=== PATIENT | male | born 1970 ===

== ENCOUNTER → 2020-07-23 15:10 | Outpatient (BNVA) | payer MEDICARE, MEDICAID, SELFPAY | PROVIDERS: PCP Physician Assistant; Visit Provider Family Medicine Adult Medicine | DX: M96.1 Postlaminectomy syndrome, not elsewhere classified (principal); Z79.891 Long term (current) use of opiate analgesic | CPT/HCPCS: 99214 ==

== ENCOUNTER → 2020-08-27 13:26 | Outpatient (BNVA) | payer MEDICARE, MEDICAID, SELFPAY | PROVIDERS: PCP Physician Assistant; Visit Provider Family Medicine Adult Medicine | DX: M96.1 Postlaminectomy syndrome, not elsewhere classified (principal); M47.816 Spondylosis without myelopathy or radiculopathy, lumbar region; Z79.891 Long term (current) use of opiate analgesic | CPT/HCPCS: 99212 ==

== ENCOUNTER → 2020-09-24 08:55 | Outpatient (BNVA) | payer MEDICARE, MEDICAID, SELFPAY | PROVIDERS: PCP Physician Assistant; Referring Provider Physician Assistant; Visit Provider Family Medicine Adult Medicine | DX: M47.816 Spondylosis without myelopathy or radiculopathy, lumbar region (principal); M96.1 Postlaminectomy syndrome, not elsewhere classified | CPT/HCPCS: 99212 ==

== ENCOUNTER → 2020-09-29 08:12 | Outpatient (BNVA) | payer MEDICARE, MEDICAID, SELFPAY | PROVIDERS: PCP Physician Assistant; Referring Provider Physician Assistant; Visit Provider Anesthesiology | DX: M47.816 Spondylosis without myelopathy or radiculopathy, lumbar region (principal); M96.1 Postlaminectomy syndrome, not elsewhere classified; M46.1 Sacroiliitis, not elsewhere classified; M51.36 Other intervertebral disc degeneration, lumbar region | CPT/HCPCS: Q3014 ==

== ENCOUNTER → 2020-10-20 13:16 | Outpatient (BNVA) | payer MEDICARE, MEDICAID, SELFPAY | PROVIDERS: PCP Physician Assistant; Visit Provider Family Medicine Adult Medicine | DX: M47.816 Spondylosis without myelopathy or radiculopathy, lumbar region (principal); M96.1 Postlaminectomy syndrome, not elsewhere classified; Z79.891 Long term (current) use of opiate analgesic | CPT/HCPCS: 99212 ==

== ENCOUNTER → 2020-12-02 15:44 | Outpatient (BNVA) | payer MEDICARE, MEDICAID, SELFPAY | PROVIDERS: PCP Physician Assistant; Visit Provider Nurse Practitioner Family | DX: M47.816 Spondylosis without myelopathy or radiculopathy, lumbar region (principal); M96.1 Postlaminectomy syndrome, not elsewhere classified; M51.36 Other intervertebral disc degeneration, lumbar region | CPT/HCPCS: 99212 ==

== ENCOUNTER → 2020-12-30 08:02 | Outpatient (BNVA) | payer MEDICARE, MEDICAID, SELFPAY | PROVIDERS: PCP Physician Assistant; Visit Provider Nurse Practitioner Family | DX: M51.36 Other intervertebral disc degeneration, lumbar region (principal); M47.816 Spondylosis without myelopathy or radiculopathy, lumbar region; M96.1 Postlaminectomy syndrome, not elsewhere classified; Z79.899 Other long term (current) drug therapy | CPT/HCPCS: 99212 ==

== ENCOUNTER → 2021-01-29 09:49 | Outpatient (BNVA) | payer MEDICARE, MEDICAID, SELFPAY | PROVIDERS: PCP Physician Assistant; Visit Provider Nurse Practitioner Family | DX: M51.36 Other intervertebral disc degeneration, lumbar region (principal); M47.816 Spondylosis without myelopathy or radiculopathy, lumbar region; M96.1 Postlaminectomy syndrome, not elsewhere classified | CPT/HCPCS: 99212 ==

== ENCOUNTER → 2021-03-01 15:42 | Outpatient (BNVA) | payer MEDICARE, MEDICAID, SELFPAY | PROVIDERS: PCP Physician Assistant; Visit Provider Nurse Practitioner Family | DX: M47.816 Spondylosis without myelopathy or radiculopathy, lumbar region (principal); M96.1 Postlaminectomy syndrome, not elsewhere classified; F17.200 Nicotine dependence, unspecified, uncomplicated; Z71.6 Tobacco abuse counseling; Z79.899 Other long term (current) drug therapy | CPT/HCPCS: 99212 ==

== ENCOUNTER → 2021-04-05 08:54 | Outpatient (BNVA) | payer MEDICARE, MEDICAID, SELFPAY | PROVIDERS: PCP Physician Assistant; Visit Provider Nurse Practitioner Family | DX: M47.816 Spondylosis without myelopathy or radiculopathy, lumbar region (principal); M96.1 Postlaminectomy syndrome, not elsewhere classified; M51.36 Other intervertebral disc degeneration, lumbar region | CPT/HCPCS: 99212 ==

== ENCOUNTER → 2021-05-11 08:25 | Outpatient (BNVA) | payer MEDICARE, MEDICAID, SELFPAY | PROVIDERS: PCP Physician Assistant; Visit Provider Family Medicine Adult Medicine | DX: M47.816 Spondylosis without myelopathy or radiculopathy, lumbar region (principal); M96.1 Postlaminectomy syndrome, not elsewhere classified; Z79.899 Other long term (current) drug therapy | CPT/HCPCS: 99212 ==

== ENCOUNTER → 2021-06-22 09:41 | Outpatient (BNVA) | payer MEDICARE, MEDICAID, SELFPAY | PROVIDERS: PCP Physician Assistant; Visit Provider Family Medicine Adult Medicine | DX: Z51.81 Encounter for therapeutic drug level monitoring (principal); M47.816 Spondylosis without myelopathy or radiculopathy, lumbar region; M96.1 Postlaminectomy syndrome, not elsewhere classified | CPT/HCPCS: 99212 ==

== ENCOUNTER → 2021-07-21 09:30 | Outpatient (BNVA) | payer MEDICARE, MEDICAID, SELFPAY | PROVIDERS: PCP Physician Assistant; Visit Provider Anesthesiology | DX: M47.816 Spondylosis without myelopathy or radiculopathy, lumbar region (principal); M96.1 Postlaminectomy syndrome, not elsewhere classified; M46.1 Sacroiliitis, not elsewhere classified; M51.36 Other intervertebral disc degeneration, lumbar region | CPT/HCPCS: 99212 ==

== ENCOUNTER → 2021-07-22 08:27 | Outpatient (BNVA) | payer MEDICARE, MEDICAID, SELFPAY | PROVIDERS: PCP Physician Assistant; Visit Provider Family Medicine Adult Medicine | DX: Z51.81 Encounter for therapeutic drug level monitoring (principal); M47.816 Spondylosis without myelopathy or radiculopathy, lumbar region; M96.1 Postlaminectomy syndrome, not elsewhere classified | CPT/HCPCS: 99212 ==

== ENCOUNTER → 2021-08-19 08:22 | Outpatient (BNVA) | payer MEDICARE, MEDICAID, SELFPAY | PROVIDERS: Visit Provider Family Medicine Adult Medicine | DX: M47.816 Spondylosis without myelopathy or radiculopathy, lumbar region (principal); M96.1 Postlaminectomy syndrome, not elsewhere classified | CPT/HCPCS: 99212 ==

== ENCOUNTER → 2021-09-23 14:30 | Outpatient (BNVA) | payer MEDICARE, MEDICAID, SELFPAY | PROVIDERS: Visit Provider Family Medicine Adult Medicine | DX: Z51.81 Encounter for therapeutic drug level monitoring (principal); M47.816 Spondylosis without myelopathy or radiculopathy, lumbar region; M96.1 Postlaminectomy syndrome, not elsewhere classified; M25.551 Pain in right hip; G89.29 Other chronic pain | CPT/HCPCS: 99212 ==

== ENCOUNTER 2021-10-05 06:03 | Outpatient (REF) | payer MEDICARE, MEDICAID, SELFPAY ==
--- NOTE | ~2021-10-05 | FL_ITS ---
EXAMINATION: XR FLUOROSCOPY WITH IMAGES CLINICAL INFORMATION: M46.1 - Sacroiliitis, not elsewhere classified COMPARISON: MR lumbar spine 03/13/2019 TECHNIQUE: Fluoroscopy performed by Dr. Kris Fuller. Fluoroscopy time: 0.1 minutes DAP: 0.242 Gycm2 Images: 1 FINDINGS: Spinal needle overlies lower right SI joint. There is contrast in the periarticular soft tissues with probable early intra-articular contrast. No vasculature communication appreciated. FL/FL guidance in treatment room IMPRESSION: Fluoroscopy for pain management procedure.
== END 2021-10-05 06:04 | disposition home or self-care (01) ==
LOC: HO.RADIR 06:03
PROVIDERS: Visit Provider Anesthesiology
DX: M46.1 Sacroiliitis, not elsewhere classified (principal); M47.816 Spondylosis without myelopathy or radiculopathy, lumbar region; M96.1 Postlaminectomy syndrome, not elsewhere classified; M51.36 Other intervertebral disc degeneration, lumbar region
CPT/HCPCS: 27096; Q9967

== ENCOUNTER 2021-10-13 09:45 | Outpatient (REF) | payer MEDICARE, MEDICAID, SELFPAY ==
--- NOTE | ~2021-10-13 | XR_ITS ---
EXAMINATION: XR HIP, RIGHT CLINICAL INFORMATION: Chronic pain COMPARISON: None TECHNIQUE: Two views of the right hip. FINDINGS: Bones and soft tissues are notable for small cystic foci within the level of the right trochanter is most consistent with herniation pits somewhat atypical location. No acute findings. No fracture. Alignment is anatomic. Hip joint space is maintained. XR/XR hip RT w PEL1V IMPRESSION: Cystic structures incidental favor synovial herniation pits as above.
== END 2021-10-13 09:46 | disposition home or self-care (01) ==
LOC: HO.XRAY 09:45
PROVIDERS: Absent Provider Family Medicine Adult Medicine; PCP Physician Assistant; Visit Provider Anesthesiology
DX: G89.29 Other chronic pain (principal); M25.551 Pain in right hip; M47.816 Spondylosis without myelopathy or radiculopathy, lumbar region; M96.1 Postlaminectomy syndrome, not elsewhere classified; M46.1 Sacroiliitis, not elsewhere classified; M51.36 Other intervertebral disc degeneration, lumbar region
CPT/HCPCS: 73502; 99212

== ENCOUNTER → 2021-10-21 09:07 | Outpatient (BNVA) | payer MEDICARE, MEDICAID, SELFPAY | PROVIDERS: PCP Physician Assistant; Visit Provider Family Medicine Adult Medicine ==

== ENCOUNTER 2021-11-09 06:44 | Outpatient (REF) | payer MEDICARE, MEDICAID, SELFPAY | END 2021-11-09 06:45 | disposition home or self-care (01) | LOC: HO.RADIR 06:44 | PROVIDERS: Visit Provider Anesthesiology | DX: Z13.89 Encounter for screening for other disorder (principal) ==

== ENCOUNTER → 2021-11-22 08:34 | Outpatient (BNVA) | payer MEDICARE, MEDICAID, SELFPAY | PROVIDERS: PCP Physician Assistant; Visit Provider Nurse Practitioner Family | DX: Z51.81 Encounter for therapeutic drug level monitoring (principal); F11.20 Opioid dependence, uncomplicated; M47.816 Spondylosis without myelopathy or radiculopathy, lumbar region; M96.1 Postlaminectomy syndrome, not elsewhere classified; M46.1 Sacroiliitis, not elsewhere classified; M51.36 Other intervertebral disc degeneration, lumbar region | CPT/HCPCS: 99212 ==

== ENCOUNTER → 2021-12-20 08:15 | Outpatient (BNVA) | payer MEDICARE, MEDICAID, SELFPAY | PROVIDERS: PCP Physician Assistant; Visit Provider Nurse Practitioner Family | DX: Z51.81 Encounter for therapeutic drug level monitoring (principal); F11.20 Opioid dependence, uncomplicated; M51.36 Other intervertebral disc degeneration, lumbar region; M47.816 Spondylosis without myelopathy or radiculopathy, lumbar region; M96.1 Postlaminectomy syndrome, not elsewhere classified; M46.1 Sacroiliitis, not elsewhere classified | CPT/HCPCS: 99212 ==

== ENCOUNTER 2022-01-19 05:53 | Outpatient (REF) | payer MEDICARE, MEDICAID, SELFPAY ==
--- NOTE | ~2022-01-19 | FL_ITS ---
EXAMINATION: XR FLUOROSCOPY WITH IMAGES CLINICAL INFORMATION: Postlaminectomy syndrome COMPARISON: None. TECHNIQUE: Fluoroscopy performed by Dr. Tyler Pacheco. Fluoroscopy time: 1.2 minutes DAP: 1.62 Gycm2 Images: 5 FINDINGS: Sanford and contrast seen in place region of the lateral aspect of the L5 vertebral body as well as one appears to be an epidural injection. FL/FL guidance in treatment room IMPRESSION: Fluoroscopy provided for pain management.
== END 2022-01-19 05:54 | disposition home or self-care (01) ==
LOC: HO.RADIR 05:53
PROVIDERS: Visit Provider Internal Medicine
DX: M51.36 Other intervertebral disc degeneration, lumbar region (principal); M54.16 Radiculopathy, lumbar region
CPT/HCPCS: 64483; 64484; J1100; Q9967

== ENCOUNTER → 2022-02-18 14:58 | Outpatient (BNVA) | payer MEDICARE, MEDICAID, SELFPAY | PROVIDERS: PCP Physician Assistant; Visit Provider Nurse Practitioner Family | DX: M96.1 Postlaminectomy syndrome, not elsewhere classified (principal); M51.36 Other intervertebral disc degeneration, lumbar region; M47.816 Spondylosis without myelopathy or radiculopathy, lumbar region; Z79.891 Long term (current) use of opiate analgesic; Z98.890 Other specified postprocedural states | CPT/HCPCS: 99212 ==

== ENCOUNTER → 2022-03-18 08:28 | Outpatient (BNVA) | payer MEDICARE, MEDICAID, SELFPAY | PROVIDERS: PCP Physician Assistant; Visit Provider Nurse Practitioner Family | DX: Z51.81 Encounter for therapeutic drug level monitoring (principal); F11.20 Opioid dependence, uncomplicated | CPT/HCPCS: 99211 ==

== ENCOUNTER → 2022-04-19 08:31 | Outpatient (BNVA) | payer MEDICARE, MEDICAID, SELFPAY | PROVIDERS: PCP Physician Assistant; Visit Provider Nurse Practitioner Family | DX: Z79.891 Long term (current) use of opiate analgesic (principal) | CPT/HCPCS: 99211 ==

== ENCOUNTER → 2022-05-18 08:00 | Outpatient (BNVA) | payer MEDICARE, MEDICAID, SELFPAY | PROVIDERS: PCP Physician Assistant; Visit Provider Nurse Practitioner Family | DX: M96.1 Postlaminectomy syndrome, not elsewhere classified (principal); M51.36 Other intervertebral disc degeneration, lumbar region; M47.816 Spondylosis without myelopathy or radiculopathy, lumbar region; Z79.891 Long term (current) use of opiate analgesic | CPT/HCPCS: 99212 ==

== ENCOUNTER → 2023-01-30 14:50 | Outpatient (BNVA) | payer MEDICARE, MEDICAID, SELFPAY | PROVIDERS: PCP Physician Assistant; Visit Provider Anesthesiology | DX: M47.816 Spondylosis without myelopathy or radiculopathy, lumbar region (principal); M96.1 Postlaminectomy syndrome, not elsewhere classified; M46.1 Sacroiliitis, not elsewhere classified; M51.36 Other intervertebral disc degeneration, lumbar region | CPT/HCPCS: 99212 ==

== ENCOUNTER 2023-02-13 09:48 | Outpatient (REF) | payer MEDICARE, MEDICAID, SELFPAY ==
--- NOTE | ~2023-02-13 | US_ITS ---
EXAMINATION: US SOFT TISSUE NECK CLINICAL INFORMATION: Right-sided neck small mobile mass. COMPARISON: None available. TECHNIQUE: Ultrasound of the neck soft tissues is performed with high- frequency villa-scale imaging and color Doppler. FINDINGS: RIGHT NECK SOFT TISSUES: Corresponding to patient indicated palpable lump is a 1.4 x 0.7 x 0.3 cm level 5A benign appearing lymph node. US/US soft tiss head and/or neck IMPRESSION: Corresponding to patient indicated palpable lump is a 1.4 x 0.7 x 0.3 cm level 5A benign appearing lymph node.
== END 2023-02-13 09:49 | disposition home or self-care (01) ==
LOC: HO.HMGCX 09:48
PROVIDERS: PCP Physician Assistant; Visit Provider Physician Assistant
DX: R22.1 Localized swelling, mass and lump, neck (principal); M47.816 Spondylosis without myelopathy or radiculopathy, lumbar region; M96.1 Postlaminectomy syndrome, not elsewhere classified; M46.1 Sacroiliitis, not elsewhere classified; M51.36 Other intervertebral disc degeneration, lumbar region
CPT/HCPCS: 76536; 99212

== ENCOUNTER 2023-02-23 08:27 | Outpatient (REF) | payer MEDICARE, MEDICAID, SELFPAY ==
[2023-02-23 11:27] LABS: Amphetamine Screen Urine Not Detected (Not Detect); Barbiturates, Urine Not Detected (Not Detect); Benzodiazepines Screen Urine Not Detected (Not Detect); Cannabinoid Screen Urine Not Detected (Not Detect); Cocaine Screen Urine Not Detected (Not Detect); Fentanyl, urine Not Detected (Not Detect); Opiate Screen Urine POSITIVE (Not Detect); Phencyclidine Screen Urine Not Detected (Not Detect)
[2023-02-23 11:34] LABS: Hematocrit 42.9 % (42.0-52.0); Hemoglobin 14.6 g/dl (14.0-18.0); Mean Corpuscular Hemoglobin 31.8 pg (27.0-33.0); Mean Corpuscular Volume 93.5 fL (80.0-98.0); Mean Platelet Volume 9.6 fL (9.4-12.4); Platelet Count 282 X10*3/uL (160-400); Red Blood Count 4.59 X10*6/uL (4.60-5.80); Red Cell Distribution Width 12.8 % (11.0-16.0); White Blood Count 5.9 X10*3/uL (4.8-10.8)
[2023-02-23 12:29] LABS: Alanine Aminotransferase 17 U/L (0-40); Albumin Level 4.2 g/dL (3.5-5.0); Alkaline Phosphatase 105 U/L (39-117); Anion Gap 11 (12-20); Aspartate Amino Transferase 21 U/L (5-37); Blood Urea Nitrogen 8 mg/dL (9-16); Calcium 9.3 mg/dL (8.4-10.2); Carbon Dioxide 27 mmol/L (22-29); Chloride 103 mmol/L (96-108); Estimated Glomerular Filt Rate > 60; Glucose Fasting 95 mg/dL (60-99); Potassium 3.8 mmol/L (3.3-5.1); Sodium 137 mmol/L (135-145); Total Protein 6.8 g/dL (6.5-8.0)
[2023-02-23 12:55] LABS: Prostate Specific Antigen Scr 1.43 ng/mL (<0.05-4.0)
== END 2023-02-23 08:28 | disposition home or self-care (01) ==
LOC: HO.HMGCLDS 08:27
PROVIDERS: PCP Physician Assistant; Visit Provider Physician Assistant
DX: J45.909 Unspecified asthma, uncomplicated (principal); F11.20 Opioid dependence, uncomplicated; Z13.1 Encounter for screening for diabetes mellitus; Z12.5 Encounter for screening for malignant neoplasm of prostate
CPT/HCPCS: 80053; 80307; 84153; 85027

== ENCOUNTER 2023-05-15 14:47 | Outpatient (AMB) | payer MEDICARE, MEDICAID, SELFPAY ==
[2023-05-15 14:49] VITALS: BP 140/88; PULSE 104; O2SAT 98; BMI 22.8
--- NOTE | 2023-05-15 14:49 | MHC.PC.OV ---
Vital Signs 05/15/23 14:49 Height 5 ft 8 in Weight 150 lb BMI 22.8 BP 140/88 H Blood Pressure Location Lt brachial Position Sitting Pulse 104 H Pulse Source Pulse Oximeter Temp Source Skin Pulse Oximetry (%) 98 Oxygen Delivery Method Room Air Intake Visit Reasons: pain managment Turbinated Bone Grinder Required: No Allergies tramadol [From Ultram] Allergy (Severe, Verified 05/15/23 15:01) Hives naloxone [From Suboxone] Allergy (Mild, Verified 05/15/23 15:01) Hives aspirin Allergy (Unknown, Verified 05/15/23 15:01) Unknown ibuprofen [Advil] Allergy (Unknown, Verified 05/15/23 15:01) Unknown morphine Allergy (Unknown, Verified 05/15/23 15:01) Unknown Sulfa (Sulfonamide Antibiotics) Allergy (Unknown, Verified 05/15/23 15:01) Unknown carisoprodol [From Soma] Adverse Reaction (Severe, Verified 05/15/23 15:01) fever, rash buprenorphine Adverse Reaction (Intermediate, Verified 05/15/23 15:01) hives NSAIDS Allergy (Unknown, Uncoded 05/15/23 14:52) Stomach Upset Medication List - Last Reconciled 05/15/23 by Jerome Menesse PA-C albuterol sulfate 90 mcg/actuation (Ventolin HFA) 1 puff inhalation Q4H 30 days budesonide (Pulmicort) 0.25 mg (2 mL) inhalation DAILY PRN 15 days cyclobenzaprine 10 mg PO Q8H PRN 30 days oxycodone 10 mg (2 x 5 mg) PO TID 28 days pantoprazole 40 mg PO DAILY Tobacco use date assessed: 05/15/23 Dental Screening Dental Screen Date: 05/15/23 Did you have a dental visit in the last 12 months?: Yes Did you have a dental problem in the last 6 months where you did not have access to dental care?: No Was dental information given to patient?: Patient has dentist HPI pain managment HPI Details Patient is a 52-year-old male here today for routine annual physical.? Patient has a past medical history significant asthma, generalized anxiety disorder, former smoker, opiate dependence and lumbar degenerative disc disease. Concern--> reports he has been having more anxiety as of late due to personal issues at home. He would like to restart his fluoxetine he use in the past with good effect on reducing his anxiety. . Lumbar degenerative disc disease:? Did have emergent lumbar surgery in 2014, ?Continues with the use of long-term opiate pain medication.? Has had no signs of abuse and most recent urine drug screen acceptable. ? He was followed by [facility] and is considering lumbar spine injections his continued pain. He is asking for 2nd opinion to [facility] pain management to help manage his opiates as well. He does have multilevel disc disease in his lumbar spine and continues to have worsening pain with radiculopathy down lower extremities.? He has an upcoming MRI for re-evaluation of his lumbar spine continued pain. Currently continues on oxycodone 10 mg t.i.d. Today reviewed and signed drug contract. [facility] Medical History Asthma Carpal tunnel syndrome, bilateral Chronic right hip pain Disc degeneration, lumbar Failed back syndrome Failed back syndrome, lumbar GERD (gastroesophageal reflux disease) Lumbar spondylosis Medication reaction Sacroiliitis, not elsewhere classified Surgical History History of hemilaminectomy Family History Father Cirrhosis of liver Mother Stomach cancer Brother Osteoporosis Son Bipolar 1 disorder Mental health disorder Social History Housing: House Alcohol intake: never Patient Tobacco Use Status: Former Tobacco user Quit Date: 2021 Tobacco use type: Cigarette e-Cigarette/Vaping Use: Never Used Second Hand Smoke Exposure: No service: No Current occupational status: disabled Current occupation: patient is currently disabled since 2013 from several different injury Cognitive needs: Yes Hearing needs: No Vision needs: No Questionnaire Thrive Questionnaire Date Thrive assessed: 01/16/23 AUDIT C Alcohol Use Questionnaire (AUDIT-C) 1. How often do you have a drink containing alcohol?: Never Total Score: 0 DEVORA-7 AMB Questionnaire DEVORA-7 Date DEVORA - 7 assessed: 01/16/23 Source: Developed by Drs. Joe Cordero, Zuleika Kingston, Andrew Dorsey and colleagues, with an educational moer from [employer]. Review of Systems Const Denies headache(s) Eyes Denies loss of vision ENT Denies vertigo, Denies dizziness, Denies headache(s) and Denies sore throat Card Denies chest pain, Denies leg edema and Denies lightheadedness Resp Denies cough, Denies hemoptysis and Denies wheezing GI Denies abdominal pain, Denies melena, Denies constipation, Denies diarrhea and Denies vomiting Denies dysuria, Denies urinary frequency and Denies urinary urgency Musc Denies arthralgias, Denies joint swelling, Denies numbness and Denies tingling Neuro Denies Abnormal speech present, Denies behavioral changes, Denies vertigo, Denies dizziness, Denies headache(s), Denies loss of vision, Denies memory loss, Denies numbness and Denies tingling Psych Denies anxiety, Denies behavioral changes, Denies depression, Denies memory loss and Denies panic attacks Tomasz/Lymph Denies easy bleeding and Denies easy bruising Aller/Immun Denies wheezing Physical exam (Primary Care) Vital Signs: Last Vital Signs Pulse 104 H 05/15/23 14:49 BP 140/88 H 05/15/23 14:49 Pulse Ox 98 05/15/23 14:49 Oxygen Delivery Method Room Air 05/15/23 14:49 BMI result Body Mass Index 22.8 Tobacco/Smoking Status: Tobacco use Status Tobacco use date assessed 05/15/23 05/15/23 14:55 Patient Tobacco Use Status Former Tobacco user 05/15/23 14:55 Tobacco use type Cigarette 05/15/23 14:55 e-Cigarette/Vaping Use Never Used 05/15/23 14:55 Thrive Assessment: Date of Thrive Assessment Date Thrive assessed 01/16/23 05/15/23 14:55 Const General: healthy appearing, no acute distress, alert and awake Nutritional Appearance: well nourished Orientation/consciousness: oriented to person, oriented to place and oriented to time HENMT Ears: TM's normal bilaterally General nose exam: Normal nasal mucous membranes and turbinates present Eyes Conjunctivae: conjunctivae normal Sclerae: sclerae normal Pupils: Equal, round and reactive pupils present Neck Neck: Yes no lymphadenopathy and Yes no JVD Thyroid: Thyroid normal Carotids: no bruits Resp Effort & Inspection: normal respiratory effort and not tachypneic Auscultation: no crackles, no rales, no rhonchi and no wheezes Cardio Rate: regular rate Rhythm: regular rhythm Heart sounds: no murmurs and normal S1 and S2 GI Palpation (GI): Soft to palpation, nontender, no hepatomegaly and no splenomegaly Auscultation: normal bowel sounds Back/Spine/Pelvis Other: CONTINUES TO AMBULATE WITH AN ANTALGIC GAIT, USING CANE FOR AMBULATION ASSISTANCE. LIMITED RANGE OF MOTION OF LUMBAR SPINE DUE TO PAIN AND STIFFNESS. Skin General skin exam: no rashes or lesions noted and dry skin Neuro General: oriented to person, oriented to place and oriented to time Cranial nerves: Yes Equal, round and reactive pupils present Speech: No Abnormal speech present Gait exam (Neuro): Normal gait present Motor exam (neuro): no tremor noted Extrem Right upper extremity: full ROM Left upper extremity: full ROM Right lower extremity: full ROM; no edema Left lower extremity: full ROM; no edema Psych Mental Status: mental status grossly normal Speech and movement: Normal speech and movement present Affect: normal affect Attitude: cooperative Thought process: Normal thought process present Assessment and Plan Assessment & Plan (1) Failed back syndrome, lumbar: Code(s): M96.1 - Postlaminectomy syndrome, not elsewhere classified Plan: As per HPI patient continues to have lumbar spine pain for the past several years. Has seen pain management for years though has lost his follow-up and now needs PCP to manage his pain medication. Continues to use oxycodone 10 mg t.i.d. along with cyclobenzaprine . Has otherwise been responsible for getting his drug screens and pill counts have been appropriate during his time at [facility]. No overt signs of misuse. Has upcoming MRI to re-evaluate lumbar spine. Will consider seeing new neurosurgeon for evaluation of possible more invasive treatment if necessary to reduce his lumbar spine pain. Orders: Orders AMB 14 Panel Urine Drug Screen 05/15/23 M96.1 - Postlaminectomy syndrome, not elsewhere classified, Z51.81 - Encounter for therapeutic drug level monitoring Medications: New fluoxetine 10 mg PO DAILY 30 days 30 caps 1RF F41.1 - Generalized anxiety disorder Refilled oxycodone Partial Fill upon patient request. 10 mg (2 x 5 mg) PO TID 28 days 168 tabs 0RF pain M51.36 - Other intervertebral disc degeneration, lumbar region cyclobenzaprine 10 mg PO Q8H 30 days PRN 90 tabs 3RF muscle spasm M47.816 - Spondylosis without myelopathy or radiculopathy, lumbar region, M51.36 - Other intervertebral disc degeneration, lumbar region, M96.1 - Postlaminectomy syndrome, not elsewhere classified Coding Level of Care Code Est Pt Level 4 (84718) Diagnoses Failed back syndrome, lumbar M96.1
== END 2023-05-15 16:05 | disposition home or self-care (01) ==
PROVIDERS: Visit Provider Physician Assistant
DX: M96.1 Postlaminectomy syndrome, not elsewhere classified (principal)
CPT/HCPCS: 99214

== ENCOUNTER 2023-05-25 07:59 | Outpatient (REF) | payer MEDICARE, MEDICAID, SELFPAY ==
--- NOTE | ~2023-05-25 | MR_ITS ---
EXAMINATION: MR LUMBAR SPINE WITHOUT AND WITH CONTRAST CLINICAL INFORMATION: Lumbar radiculopathy COMPARISON: MRI lumbar spine 03/13/2019 TECHNIQUE: MRI of the lumbar spine was obtained using routine sequences before and after intravenous administration of 7 mL Gadavist. FINDINGS: Slight lumbar dextrocurvature. Straightening and slight reversal of the upper lumbar lordosis. Stable trace retrolisthesis from L2-L3 through L5-S1. Again noted diffuse endplate Schmorl's nodes. Decreased edema associated with an L4 upper endplate Schmorl's node. Increased enhancing type I Modic endplate changes at L4-L5 and L5-S1 with additional milder multilevel type I Modic endplate change. Stable mild chronic height loss of the T12-L2 vertebral bodies. There is no suspicious enhancing osseous lesion. Multilevel disc desiccation with stable moderate L5-S1 and otherwise mild to moderate disc height loss. Multilevel anterior osteophytic spurring is seen.There are multilevel degenerative changes with level by level detail as follows: L1-L2: Redemonstrated annular disc bulge and mild bilateral facet arthrosis. Stable minimal right eccentric spinal canal narrowing without neural foraminal stenosis. L2-L3: Annular disc bulge with mild bilateral facet arthrosis. Stable mild spinal canal narrowing without neural foraminal stenosis. L3-L4: Annular disc bulge with enhancing paracentral annular fissure, redemonstrated left foraminal/far lateral disc protrusion and mild bilateral facet arthrosis with ligamentum flavum thickening. Likely stable mild spinal canal narrowing and asymmetric left-sided subarticular zone narrowing abutting the traversing left L4 nerve root. Stable severe left neural foraminal stenosis with compression of the exiting/extraforaminal left L3 nerve root. Stable minimal right neural foraminal encroachment. L4-L5: Annular disc bulge with redemonstration of superiorly migrated left foraminal/far lateral disc extrusion and mild to moderate bilateral facet arthrosis and ligamentum flavum thickening. Increased degenerative enhancing marrow edema associated with the left facet joint and extending into the left L4 pedicle. Stable mild spinal canal stenosis and subarticular zone narrowing with abutment along the traversing left L5 nerve root. Similar moderate left and [id number] right neural foraminal stenosis with mass effect along the exiting/extraforaminal left L4 nerve root. L5-S1: Annular disc bulge and enhancing right subarticular annular fissure, right lateral disc osteophyte and moderate bilateral facet arthrosis. No spinal canal stenosis. Stable moderate to severe right neural foraminal stenosis with compression of the exiting right L5 nerve root mild left neural foraminal stenosis. The conus medullaris terminates at the level of L2-L3. Nonthickened fatty filum. The distal spinal cord and cauda equina nerve roots appear normal. No abnormal intramedullary or leptomeningeal enhancement.. No epidural fluid collection, hematoma, or mass. No significant abnormalities of the paraspinal musculature. Right renal cyst not requiring further imaging follow-up. Redemonstrated suggestion of mural thickening along the bladder dome (image 9, series 1), stable since 03/13/2019, favoring a benign etiology may be at least partially on the basis of underdistention. The abdominal aorta is of normal contour and caliber. MR/MR lumbar spine wo/w con IMPRESSION: 1. Stable lumbar spondylosis as described above. No high-grade spinal canal stenosis. Stable severe left L3-L4 neural foraminal stenosis with compression of the exiting/extraforaminal left L3 nerve root. Additional level by level as above. 2. Increased degenerative marrow edema associated with left L4-L5 facet arthropathy. 3. Decreased edema associated with an L4 upper endplate Schmorl's node. Increased enhancing type I Modic endplate changes at L4-L5 and L5-S1
== END 2023-05-25 08:00 | disposition home or self-care (01) ==
LOC: HO.MRI 07:59
PROVIDERS: PCP Physician Assistant; Visit Provider Physician Assistant
DX: M96.1 Postlaminectomy syndrome, not elsewhere classified (principal); M54.16 Radiculopathy, lumbar region
CPT/HCPCS: 72158; A9585

== ENCOUNTER 2023-10-24 09:37 | Outpatient (AMB) | payer MEDICARE, MEDICAID, SELFPAY ==
[2023-10-24 09:41] VITALS: BP 136/86; PULSE 95; RESP 17; BMI 24.8
--- NOTE | 2023-10-24 09:41 | MHC.PC.OV ---
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: No Accompanied by: Self / Same As Patient Allergies tramadol [From Ultram] Allergy (Severe, Verified 10/24/23 10:07) Hives naloxone [From Suboxone] Allergy (Mild, Verified 10/24/23 10:07) Hives aspirin Allergy (Unknown, Verified 10/24/23 10:07) Unknown ibuprofen [Advil] Allergy (Unknown, Verified 10/24/23 10:07) Unknown morphine Allergy (Unknown, Verified 10/24/23 10:07) Unknown Sulfa (Sulfonamide Antibiotics) Allergy (Unknown, Verified 10/24/23 10:07) Unknown carisoprodol [From Soma] Adverse Reaction (Severe, Verified 10/24/23 10:07) fever, rash buprenorphine Adverse Reaction (Intermediate, Verified 10/24/23 10:07) hives NSAIDS Allergy (Unknown, Uncoded 05/15/23 14:52) Stomach Upset Medication List - Last Reconciled 10/24/23 by Jerome Meneses PA-C albuterol sulfate 90 mcg/actuation (Ventolin HFA) 1 puff inhalation Q4H 30 days budesonide (Pulmicort) 0.25 mg (2 mL) inhalation DAILY PRN 15 days cyclobenzaprine 10 mg PO Q8H PRN 30 days fluoxetine 10 mg PO DAILY 30 days oxycodone 10 mg PO TID 28 days pantoprazole 40 mg PO DAILY Tobacco use date assessed: 05/15/23 Dental Screening Dental Screen Date: 10/24/23 Did you have a dental visit in the last 12 months?: Yes Did you have a dental problem in the last 6 months where you did not have access to dental care?: No Was dental information given to patient?: Patient has dentist HPI f/u pain management HPI Details atient is a 52-year-old male here today for routine annual physical.? Patient has a past medical history significant asthma, generalized anxiety disorder, former smoker, opiate dependence and lumbar degenerative disc disease. . Lumbar degenerative disc disease:? Did have emergent lumbar surgery in 2013, ?Continues with the use of long-term opiate pain medication.? Has had no signs of abuse and most recent urine drug screen acceptable. ? He was followed by the [facility] pain [facility] and is considering lumbar spine injections his continued pain. He is asking for 2nd opinion to [facility] pain management to help manage his opiates as well. He does have multilevel disc disease in his lumbar spine and continues to have worsening pain with radiculopathy down lower extremities.? He has an upcoming MRI for re-evaluation of his lumbar spine continued pain. Currently continues on oxycodone 10 mg t.i.d. he does report his pain is fairly well managed and is able to continue his activities of daily living. Does have a hobby of woodworking making [employer]. Urine drug screens have been appropriate, no overt signs does use or abuse. .. Generalized anxiety disorder: Continues with the use of fluoxetine 10 mg which has been effective on reducing his anxiety. Laboratory Tests 08/28/19 02/23/23 10:23 08:40 Urine Opiates Scre en POSITIVE H POSITIVE H PFSH Medical History Asthma Carpal tunnel syndrome, bilateral Chronic right hip pain Disc degeneration, lumbar Failed back syndrome Failed back syndrome, lumbar GERD (gastroesophageal reflux disease) Lumbar spondylosis Medication reaction Sacroiliitis, not elsewhere classified Surgical History History of hemilaminectomy Family History Father Cirrhosis of liver Mother Stomach cancer Brother Osteoporosis Son Bipolar 1 disorder Mental health disorder Social History Housing: House Alcohol intake: never Patient Tobacco Use Status: Former Tobacco user Quit Date: 2021 Tobacco use type: Cigarette e-Cigarette/Vaping Use: Never Used Second Hand Smoke Exposure: No service: No Current occupational status: disabled Current occupation: patient is currently disabled since 2013 from several different injury Cognitive needs: Yes Hearing needs: No Vision needs: No Questionnaire PHQ-9 Over the last 2 weeks, how often have you been bothered by any of the following problems? 1. Little interest or pleasure in doing things: not at all 2. Feeling down, depressed, or hopeless: not at all 3. Trouble falling or staying asleep, or sleeping too much: not at all 4. Feeling tired or having little energy: not at all 5. Poor appetite or overeating: not at all 6. Feeling bad about yourself - or that you are a failure or have let yourself or your family down: not at all 7. Trouble concentrating on things, such as reading the newspaper or watching television: not at all 8. Moving or speaking so slowly that other people could have noticed. Or the opposite - being so fidgety or restless that you have been moving around a lot more than usual: not at all 9. Thoughts that you would be better off or of hurting yourself in some way: not at all Total score: 0 Depression Screening Interpretation: Negative Depression Screening Done: Yes 10058 - PHQ-9 Billing: Yes Source: Developed by Drs. Joe Cordero, Zuleika Kingston, Andrew Dorsey and colleagues, with an educational omer from [employer]. Thrive Questionnaire Date Thrive assessed: 10/24/23 I am a: Patient What is your living situation today?: I have a steady place to live Within the past 12 months, did the food you bought not last and you didn't have the money to get more?: Never true Within the past 12 months, did you worry whether your food would run out before you got money to buy more?: Never true Do you have trouble paying for medicines?: No Do you have trouble getting transportation to medical appointments?: No Do you have trouble paying your heating and electricity bill?: No Do you have trouble taking care of your child, family member or friend?: No Do you have trouble with day-to-day activities such as bathing, preparing meals, shopping, managing finances, etc.?: No Are you currently unemployed and looking for a job?: No Are you interested in more education?: No Please select the resources that you would like help with: None Currently or been in a relationship where the following occur: no concerns reported AUDIT C Alcohol Use Questionnaire (AUDIT-C) 1. How often do you have a drink containing alcohol?: Monthly or less 2. How many drinks containing alcohol do you have on a typical day when you are drinking?: 1 or 2 3. How often do you have six or more drinks on one occasion?: Never Total Score: 1 DEVORA-7 AMB Questionnaire DEVORA-7 Date DEVORA - 7 assessed: 10/24/23 Feeling nervous, anxious, or on edge: 1 = Several days Not being able to stop or control worryin = More than half the days Worrying too much about different things: 2 = More than half the days Trouble relaxin = Nearly every day Being so restless that it is hard to sit still: 2 = More than half the days Becoming easily annoyed or irritable: 2 = More than half the days Feeling afraid as if something awful might happen: 1 = Several days Total DEVORA-7 score (0-4 normal; 5-9 mild; 10-14 moderate; 15-21 severe): 13 Source: Developed by Drs. Joe Cordero, Zuleika Kingston, Andrew Dorsey and colleagues, with an educational omer from [employer]. DEVORA-7 Assessment Billing DEVORA-7 Assessment Tool: DEVORA-7 Assessment 42509 Review of Systems Const Denies headache(s) Eyes Denies loss of vision ENT Denies vertigo, Denies dizziness, Denies headache(s) and Denies sore throat Card Denies chest pain, Denies leg edema and Denies lightheadedness Resp Denies cough, Denies hemoptysis and Denies wheezing GI Denies abdominal pain, Denies melena, Denies constipation, Denies diarrhea and Denies vomiting Denies dysuria, Denies urinary frequency and Denies urinary urgency Musc Denies arthralgias, Denies joint swelling, Denies numbness and Denies tingling Neuro Denies Abnormal speech present, Denies behavioral changes, Denies vertigo, Denies dizziness, Denies headache(s), Denies loss of vision, Denies memory loss, Denies numbness and Denies tingling Psych Denies anxiety, Denies behavioral changes, Denies depression, Denies memory loss and Denies panic attacks Tomasz/Lymph Denies easy bleeding and Denies easy bruising Aller/Immun Denies wheezing Physical exam (Primary Care) Vital Signs: Last Vital Signs Pulse 95 10/24/23 09:41 Resp 17 10/24/23 09:41 BP 136/86 10/24/23 09:41 BMI result Body Mass Index 24.8 Tobacco/Smoking Status: Tobacco use Status Tobacco use date assessed 05/15/23 10/24/23 09:43 Patient Tobacco Use Status Former Tobacco user 10/24/23 09:43 Tobacco use type Cigarette 10/24/23 09:43 e-Cigarette/Vaping Use Never Used 10/24/23 09:43 PHQ-9: PHQ-9 Score PHQ-9: Total score 0 10/24/23 10:10 Depression Screening Interpretation: Negative Thrive Assessment: Date of Thrive Assessment Date Thrive assessed 10/24/23 10/24/23 09:56 Currently or been in a relationship where the following occur: no concerns reported Const General: healthy appearing, no acute distress, alert and awake Nutritional Appearance: well nourished Orientation/consciousness: oriented to person, oriented to place and oriented to time HENMT Ears: TM's normal bilaterally General nose exam: Normal nasal mucous membranes and turbinates present Eyes Conjunctivae: conjunctivae normal Sclerae: sclerae normal Pupils: Equal, round and reactive pupils present Neck Neck: Yes no lymphadenopathy and Yes no JVD Thyroid: Thyroid normal Carotids: no bruits Resp Effort & Inspection: normal respiratory effort and not tachypneic Auscultation: no crackles, no rales, no rhonchi and no wheezes Cardio Rate: regular rate Rhythm: regular rhythm Heart sounds: no murmurs and normal S1 and S2 GI Palpation (GI): Soft to palpation, nontender, no hepatomegaly and no splenomegaly Auscultation: normal bowel sounds Back/Spine/Pelvis Other: Limited range of motion of the lumbar spine due to pain and stiffness, ambulating with a cane for assistance. Skin General skin exam: no rashes or lesions noted and dry skin Neuro General: oriented to person, oriented to place and oriented to time Cranial nerves: Yes Equal, round and reactive pupils present Speech: No Abnormal speech present Gait exam (Neuro): Normal gait present Motor exam (neuro): no tremor noted Extrem Right upper extremity: full ROM Left upper extremity: full ROM Right lower extremity: full ROM; no edema Left lower extremity: full ROM; no edema Psych Mental Status: mental status grossly normal Speech and movement: Normal speech and movement present Affect: normal affect Attitude: cooperative Thought process: Normal thought process present Assessment and Plan Assessment & Plan (1) Failed back syndrome, lumbar: Code(s): M96.1 - Postlaminectomy syndrome, not elsewhere classified Plan: As per HPI patient continues to have lumbar spine pain for the past several years. Has seen pain management for years though has lost his follow-up and now needs PCP to manage his pain medication. Continues to use oxycodone 10 mg t.i.d. along with cyclobenzaprine . Has otherwise been responsible for getting his drug screens and pill counts have been appropriate during his time at [facility]. No overt signs of misuse. Of note has seen neurosurgeon in the past and was told he was not a surgical candidate to help fix is lumbar discs. (2) MDD (major depressive disorder), recurrent episode, moderate: Code(s): F33.1 - Major depressive disorder, recurrent, moderate Plan: Patient's PHQ-9 score 0. Has been stable with the use of SSRI therapy. Not speaking with a mental health therapist at this time. (3) Opiate dependence: Code(s): F11.20 - Opioid dependence, uncomplicated Qualifiers: Substance use status: uncomplicated Qualified Code(s): F11.20 - Opioid dependence, uncomplicated Plan: Patient does understand he is dependent on opiates. Does report some fatigue which is likely related to his chronic opiate use. Will check his testosterone as well. We did have a discussion about slowly weaning his overall daily dose of oxycodone and patient agrees and understands. (4) Bronchitis: Code(s): J40 - Bronchitis, not specified as acute or chronic (5) DEVORA (generalized anxiety disorder): Code(s): F41.1 - Generalized anxiety disorder Plan: Patient's DEVORA-7 score positive for moderate to severe anxiety which has been existing condition for him. He reports fluoxetine 10 mg has been effective on reducing his anxiety symptoms. Orders: Orders Drug Screen Urine Today F11.20 - Opioid dependence, uncomplicated Comprehensive [place]. Panel Fast Today Z13.1 - Encounter for screening for diabetes mellitus Prostate Specific Antigen Scr Today Z12.5 - Encounter for screening for malignant neoplasm of prostate, Z13.1 - Encounter for screening for diabetes mellitus Testosterone, Free/Total Today F11.20 - Opioid dependence, uncomplicated, R53.83 - Other fatigue Medications: Refilled albuterol sulfate 90 mcg/actuation (Ventolin HFA) 1 puff as needed Inhalation every 4 hrs 1 puff inhalation Q4H 30 days 8.5 grams 3RF J45.909 - Unspecified asthma, uncomplicated fluoxetine 10 mg PO DAILY 30 days 30 caps 6RF F41.1 - Generalized anxiety disorder Coding Level of Care Code Est Pt Level 4 (97386) Diagnoses Failed back syndrome, lumbar M96.1 MDD (major depressive disorder), recurrent episode, moderate F33.1 Uncomplicated opioid dependence F11.20 Substance use status: uncomplicated Bronchitis J40 DEVORA (generalized anxiety disorder) F41.1 Additional Codes DEVORA-7 Assessment Billing - DEVORA-7 Assessment Tool: DEVORA-7 Assessment 11574 ([id number])
== END 2023-10-24 10:28 | disposition home or self-care (01) ==
PROVIDERS: PCP Physician Assistant; Visit Provider Physician Assistant
DX: J40 Bronchitis, not specified as acute or chronic (principal); M96.1 Postlaminectomy syndrome, not elsewhere classified; F33.1 Major depressive disorder, recurrent, moderate; F11.20 Opioid dependence, uncomplicated; F41.1 Generalized anxiety disorder
CPT/HCPCS: 99214

== ENCOUNTER 2023-10-24 10:42 | Outpatient (REF) | payer MEDICARE, MEDICAID, SELFPAY ==
[2023-10-24 13:08] LABS: Amphetamine Screen Urine Not Detected (Not Detect); Barbiturates, Urine Not Detected (Not Detect); Benzodiazepines Screen Urine Not Detected (Not Detect); Cannabinoid Screen Urine Not Detected (Not Detect); Cocaine Screen Urine Not Detected (Not Detect); Fentanyl, urine Not Detected (Not Detect); Opiate Screen Urine POSITIVE (Not Detect); Phencyclidine Screen Urine Not Detected (Not Detect)
== END 2023-10-24 10:43 | disposition home or self-care (01) ==
LOC: HO.LAB 10:42
PROVIDERS: PCP Physician Assistant; Visit Provider Physician Assistant
DX: F11.20 Opioid dependence, uncomplicated (principal)
CPT/HCPCS: 80307

== ENCOUNTER 2024-01-19 08:10 | Outpatient (REF) | payer MEDICARE, SELFPAY ==
[2024-01-19 10:58] LABS: Hematocrit 42.5 % (42.0-52.0); Hemoglobin 14.7 g/dl (14.0-18.0); Mean Corpuscular HGB Conc 34.6 g/dl (31.0-36.0); Mean Corpuscular Hemoglobin 32.7 pg (27.0-33.0); Mean Corpuscular Volume 94.7 fL (80.0-98.0); Mean Platelet Volume 9.5 fL (9.4-12.4); Platelet Count 265 X10*3/uL (160-400); Red Blood Count 4.49 X10*6/uL (4.60-5.80); Red Cell Distribution Width 12.8 % (11.0-16.0); White Blood Count 4.6 X10*3/uL (4.8-10.8)
[2024-01-19 11:08] LABS: Alanine Aminotransferase 20 U/L (0-40); Albumin Level 3.9 g/dL (3.5-5.0); Alkaline Phosphatase 104 U/L (39-117); Anion Gap 9 (12-20); Aspartate Amino Transferase 26 U/L (5-37); Bilirubin Total 0.4 mg/dL (0.0-1.0); Blood Urea Nitrogen 11 mg/dL (9-16); Carbon Dioxide 26 mmol/L (22-29); Chloride 106 mmol/L (96-108); Estimated Glomerular Filt Rate > 60; Glucose Fasting 99 mg/dL (60-99); Potassium 4.1 mmol/L (3.3-5.1); Sodium 137 mmol/L (135-145); Total Protein 7.2 g/dL (6.5-8.0)
[2024-01-19 11:17] LABS: Prostate Specific Antigen Scr 1.54 ng/mL (<0.05-4.0)
[2024-01-23 21:58] LABS: Testosterone, Free 194.6 pg/mL (35.0-155.0); Testosterone, Total 811 ng/dL (250-1100)
== END 2024-01-19 08:11 | disposition home or self-care (01) ==
LOC: HO.HMGCLDS 08:10
PROVIDERS: PCP Physician Assistant; Visit Provider Physician Assistant
DX: Z13.1 Encounter for screening for diabetes mellitus (principal); Z12.5 Encounter for screening for malignant neoplasm of prostate; F11.20 Opioid dependence, uncomplicated; R53.83 Other fatigue
CPT/HCPCS: 36415; 80053; 84153; 84402; 84403; 85027

== ENCOUNTER 2024-01-23 10:00 | Outpatient (AMB) | payer MEDICARE, SELFPAY ==
--- NOTE | 2024-01-23 10:01 | A.OFFPC_ITS ---
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 Hand Required: No Accompanied by: Self / Same As Patient Allergies tramadol [From Ultram] Allergy (Severe, Verified 01/23/24 10:09) Hives naloxone [From Suboxone] Allergy (Mild, Verified 01/23/24 10:09) Hives aspirin Allergy (Unknown, Verified 01/23/24 10:09) Unknown ibuprofen [Advil] Allergy (Unknown, Verified 01/23/24 10:09) Unknown morphine Allergy (Unknown, Verified 01/23/24 10:09) Unknown Sulfa (Sulfonamide Antibiotics) Allergy (Unknown, Verified 01/23/24 10:09) Unknown carisoprodol [From Soma] Adverse Reaction (Severe, Verified 01/23/24 10:09) fever, rash buprenorphine Adverse Reaction (Intermediate, Verified 01/23/24 10:09) hives NSAIDS Allergy (Unknown, Uncoded 01/23/24 10:02) Stomach Upset Medication List - Last Reconciled 01/23/24 by Jerome Meneses PA-C albuterol sulfate 90 mcg/actuation (Ventolin HFA) 1 puff inhalation Q4H 30 days budesonide (Pulmicort) 0.25 mg (2 mL) inhalation DAILY PRN 15 days cyclobenzaprine 10 mg PO Q8H PRN 30 days fluoxetine 10 mg PO DAILY 30 days oxycodone 10 mg PO TID 28 days pantoprazole 40 mg PO DAILY Tobacco use date assessed: 01/23/24 Dental Screening Dental Screen Date: 10/24/23 HPI f/u pain management HPI Details Patient is a 53-year-old male here today for a follow-up visit..? Patient has a past medical history significant asthma, generalized anxiety disorder, former smoker, opiate dependence and lumbar degenerative disc disease. . Lumbar degenerative disc disease:? Did have emergent lumbar surgery in 2013, has gotten lumbar spine injections without any significant relief of his chronic lumbar spine pain, he has not interested in spinal stimulation. Has no further follow-up with [facility] pain management ?Continues with the use of long-term opiate pain medication.? Has had no signs of abuse and most recent urine drug screen acceptable. . He does have multilevel disc disease in his lumbar spine and continues to have worsening pain with radiculopathy down lower extremities.? He has an upcoming MRI for re-evaluation of his lumbar spine continued pain. Currently continues on oxycodone 10 mg t.i.d. he does report his pain is fairly well managed and is able to continue his activities of daily living. Does have a hobby of woodworking making [employer]. Urine drug screens have been appropriate, no overt signs does use or abuse. AT THIS TIME HE HAS NOT INTERESTED IN ANY SURGERIES OR INJECTIONS -WILL CONTINUE TO MANAGE WITH OPIATE PAIN MEDICATION AND CONTINUE SUGGESTING WEANING TO LOWEST EFFECTIVE DOSE. .. Generalized anxiety disorder: Continues with the use of fluoxetine 10 mg which has been effective on reducing his anxiety. Laboratory Tests 08/28/19 02/23/23 10:23 08:40 Urine Opiates Scre en POSITIVE H POSITIVE H Laboratory Tests 08/28/19 02/23/23 02/23/23 10:23 08:34 08:40 RBC Creatinine PSA Screen 1.43 Urine Opiates Scre en POSITIVE H POSITIVE H 10/24/23 01/19/24 10:55 08:23 RBC 4.49 L Creatinine 0.81 PSA Screen 1.54 Urine Opiates Scre en POSITIVE H [facility] Medical History Asthma Carpal tunnel syndrome, bilateral Chronic right hip pain Disc degeneration, lumbar Failed back syndrome Failed back syndrome, lumbar GERD (gastroesophageal reflux disease) Lumbar spondylosis Medication reaction Sacroiliitis, not elsewhere classified Surgical History History of hemilaminectomy Family History Father Cirrhosis of liver Mother Stomach cancer Brother Osteoporosis Son Bipolar 1 disorder Mental health disorder Social History Housing: House Alcohol intake: never Patient Tobacco Use Status: Former Tobacco user Quit Date: 2021 Tobacco use type: Cigarette e-Cigarette/Vaping Use: Never Used Second Hand Smoke Exposure: No service: No Current occupational status: disabled Current occupation: patient is currently disabled since 2013 from several different injury Cognitive needs: Yes Hearing needs: No Vision needs: No Questionnaire Thrive Questionnaire Date Thrive assessed: 10/24/23 DEVORA-7 AMB Questionnaire DEVORA-7 Date DEVORA - 7 assessed: 10/24/23 Source: Developed by Drs. Joe Cordero, Zuleika Kingston, Andrew Dorsey and colleagues, with an educational omer from [employer]. Review of Systems Const Denies headache(s) Eyes Denies loss of vision ENT Denies vertigo, Denies dizziness, Denies headache(s) and Denies sore throat Card Denies chest pain, Denies leg edema and Denies lightheadedness Resp Denies cough, Denies hemoptysis and Denies wheezing GI Denies abdominal pain, Denies melena, Denies constipation, Denies diarrhea and Denies vomiting Denies dysuria, Denies urinary frequency and Denies urinary urgency Musc Denies arthralgias, Denies joint swelling, Denies numbness and Denies tingling Neuro Denies Abnormal speech present, Denies behavioral changes, Denies vertigo, Denies dizziness, Denies headache(s), Denies loss of vision, Denies memory loss, Denies numbness and Denies tingling Psych Denies anxiety, Denies behavioral changes, Denies depression, Denies memory loss and Denies panic attacks Tomasz/Lymph Denies easy bleeding and Denies easy bruising Aller/Immun Denies wheezing Physical exam (Primary Care) Vital Signs: Last Vital Signs Pulse 82 01/23/24 10:07 Resp 16 01/23/24 10:07 BP 130/86 01/23/24 10:07 Pulse Ox 96 01/23/24 10:07 Oxygen Delivery Method Room Air 01/23/24 10:07 BMI result Body Mass Index 24.5 Tobacco/Smoking Status: Tobacco use Status Tobacco use date assessed 01/23/24 01/23/24 10:05 Patient Tobacco Use Status Former Tobacco user 01/23/24 10:02 Tobacco use type Cigarette 01/23/24 10:02 e-Cigarette/Vaping Use Never Used 01/23/24 10:02 Thrive Assessment: Date of Thrive Assessment Date Thrive assessed 10/24/23 01/23/24 10:02 Const General: healthy appearing, no acute distress, alert and awake Nutritional Appearance: well nourished Orientation/consciousness: oriented to person, oriented to place and oriented to time HENMT Ears: TM's normal bilaterally General nose exam: Normal nasal mucous membranes and turbinates present Eyes Conjunctivae: conjunctivae normal Sclerae: sclerae normal Pupils: Equal, round and reactive pupils present Neck Neck: Yes no lymphadenopathy and Yes no JVD Thyroid: Thyroid normal Carotids: no bruits Resp Effort & Inspection: normal respiratory effort and not tachypneic Auscultation: no crackles, no rales, no rhonchi and no wheezes Cardio Rate: regular rate Rhythm: regular rhythm Heart sounds: no murmurs and normal S1 and S2 GI Palpation (GI): Soft to palpation, nontender, no hepatomegaly and no splenomegaly Auscultation: normal bowel sounds Back/Spine/Pelvis Other: LIMITED RANGE OF MOTION LUMBAR SPINE DUE TO PAIN AND STIFFNESS. PATIENT AMBULATES WITH A CANE FOR ASSISTANCE. Skin General skin exam: no rashes or lesions noted and dry skin Neuro General: oriented to person, oriented to place and oriented to time Cranial nerves: Yes Equal, round and reactive pupils present Speech: No Abnormal speech present Gait exam (Neuro): Normal gait present Motor exam (neuro): no tremor noted Extrem Right upper extremity: full ROM Left upper extremity: full ROM Right lower extremity: full ROM; no edema Left lower extremity: full ROM; no edema Psych Mental Status: mental status grossly normal Speech and movement: Normal speech and movement present Affect: normal affect Attitude: cooperative Thought process: Normal thought process present Assessment and Plan Assessment & Plan (1) Failed back syndrome, lumbar: Code(s): M96.1 - Postlaminectomy syndrome, not elsewhere classified Plan: As per HPI patient continues to have lumbar spine pain for the past several years. Has seen pain management for years though has lost his follow-up and now needs PCP to manage his pain medication. Continues to use oxycodone 10 mg t.i.d. along with cyclobenzaprine . Has otherwise been responsible for getting his drug screens and pill counts have been appropriate during his time at [facility] pain [facility]. No overt signs of misuse. Of note has seen neurosurgeon in the past and was told he was not a surgical candidate to help fix is lumbar discs. (2) Opiate dependence: Code(s): F11.20 - Opioid dependence, uncomplicated Qualifiers: Substance use status: uncomplicated Qualified Code(s): F11.20 - Opioid dependence, uncomplicated Plan: Patient does understand he is dependent on opiates. Does report some fatigue which is likely related to his chronic opiate use. We did have a discussion about slowly weaning his overall daily dose of oxycodone and patient agrees and understands. (3) Bilateral hand pain: Code(s): M79.641 - Pain in right hand; M79.642 - Pain in left hand Plan: Reports having bilateral hand pain and morning stiffness. Does report some spas ms in the palms and fingers at times. Orders: Orders Drug Screen Urine 01/23/24 F11.20 - Opioid dependence, uncomplicated XR hand LT 2V 01/23/24 M79.641 - Pain in right hand, M79.642 - Pain in left hand XR hand RT 2V 01/23/24 M79.641 - Pain in right hand, M79.642 - Pain in left hand WILL Reflex Titer and Pattern 01/23/24 M79.641 - Pain in right hand, M79.642 - Pain in left hand Erythrocyte Sedimentation Rate 01/23/24 M79.641 - Pain in right hand, M79.642 - Pain in left hand Cyclic Citrullinated Peptide 01/23/24 M79.641 - Pain in right hand, M79.642 - P ain in left hand Rheumatoid Factor 01/23/24 M79.641 - Pain in right hand, M79.642 - Pain in left hand Medications: New montelukast 10 mg PO DAILY 90 days 90 tabs 2RF J45.20 - Mild intermittent asthma, uncomplicated Refilled oxycodone Partial Fill upon patient request. 10 mg PO TID 28 days 84 tabs 0RF pain F11.20 - Opioid dependence, uncomplicated Coding Level of Care Code Est Pt Level 4 (67558) Diagnoses Failed back syndrome, lumbar M96.1 Uncomplicated opioid dependence F11.20 Substance use status: uncomplicated Bilateral hand pain M79.641; M79.642
[2024-01-23 10:07] VITALS: BP 130/86; PULSE 82; RESP 16; O2SAT 96; BMI 24.5
== END 2024-01-23 10:42 | disposition home or self-care (01) ==
PROVIDERS: PCP Physician Assistant; Visit Provider Physician Assistant
DX: M96.1 Postlaminectomy syndrome, not elsewhere classified (principal); F11.20 Opioid dependence, uncomplicated; M79.641 Pain in right hand; M79.642 Pain in left hand
CPT/HCPCS: 99214

== ENCOUNTER 2024-02-28 15:17 | Outpatient (REF) | payer MEDICARE, SELFPAY ==
--- NOTE | ~2024-02-28 | XR_ITS ---
EXAMINATION: XR HAND, BILATERAL CLINICAL INFORMATION: Pain in bilateral hands. COMPARISON: None available. TECHNIQUE: 3 views of each hand. FINDINGS: Left Hand: Moderate degenerative changes in the first carpometacarpal joint with joint space narrowing and hypertrophic change. Bone mineralization is normal. Minimal degenerative changes with hypertrophic change in the DIP joints. Right Hand: Moderate degenerative changes in the first carpometacarpal joint with joint space narrowing and hypertrophic change. Bone mineralization is normal. Minimal degenerative changes in scattered DIP joints. XR/XR hand LT min 3V IMPRESSION: Moderate degenerative changes bilateral first carpometacarpal joints.
--- NOTE | ~2024-02-28 | XR_ITS ---
EXAMINATION: XR ANKLE, LEFT CLINICAL INFORMATION: Ankle effusion COMPARISON: None available. TECHNIQUE: AP, lateral, and mortise views of the left ankle. FINDINGS: No fracture. Alignment is anatomic. No erosions. Joint spaces are maintained. Mild lateral soft tissue swelling is noted. The talar dome and ankle mortise are intact. XR/XR ankle LT min 3V IMPRESSION: Lateral soft tissue swelling of the left ankle. No acute fracture or subluxation.
--- NOTE | ~2024-02-28 | XR_ITS ---
EXAMINATION: XR HAND, BILATERAL CLINICAL INFORMATION: Pain in bilateral hands. COMPARISON: None available. TECHNIQUE: 3 views of each hand. FINDINGS: Left Hand: Moderate degenerative changes in the first carpometacarpal joint with joint space narrowing and hypertrophic change. Bone mineralization is normal. Minimal degenerative changes with hypertrophic change in the DIP joints. Right Hand: Moderate degenerative changes in the first carpometacarpal joint with joint space narrowing and hypertrophic change. Bone mineralization is normal. Minimal degenerative changes in scattered DIP joints. XR/XR hand RT min 3V IMPRESSION: Moderate degenerative changes bilateral first carpometacarpal joints.
== END 2024-02-28 15:18 | disposition home or self-care (01) ==
LOC: HO.HMGCX 15:17
PROVIDERS: PCP Physician Assistant; Visit Provider Physician Assistant
DX: M79.642 Pain in left hand (principal); M25.472 Effusion, left ankle; M79.641 Pain in right hand
CPT/HCPCS: 73130; 73610

== ENCOUNTER 2024-05-06 10:51 | Outpatient (AMB) | payer MEDICARE, SELFPAY ==
--- NOTE | 2024-05-06 11:18 | MHC.PC.OV ---
Vital Signs 05/06/24 11:21 Height 5 ft 8 in Weight 152 lb 4 oz BMI 23.1 BP 122/82 Blood Pressure Location Lt brachial Position Sitting Pulse 78 Pulse Source Pulse Oximeter Pulse Oximetry (%) 97 Oxygen Delivery Method Room Air Intake Visit Reasons: f/u pain management Angle Shearer Required: No Accompanied by: Self / Same As Patient Allergies tramadol [From Ultram] Allergy (Severe, Verified 05/06/24 11:38) Hives naloxone [From Suboxone] Allergy (Mild, Verified 05/06/24 11:38) Hives aspirin Allergy (Unknown, Verified 05/06/24 11:38) Unknown ibuprofen [Advil] Allergy (Unknown, Verified 05/06/24 11:38) Unknown morphine Allergy (Unknown, Verified 05/06/24 11:38) Unknown Sulfa (Sulfonamide Antibiotics) Allergy (Unknown, Verified 05/06/24 11:38) Unknown carisoprodol [From Soma] Adverse Reaction (Severe, Verified 05/06/24 11:38) fever, rash buprenorphine Adverse Reaction (Intermediate, Verified 05/06/24 11:38) hives NSAIDS Allergy (Unknown, Uncoded 05/06/24 11:38) Stomach Upset Medication List - Last Reconciled 05/06/24 by Jerome Meneses PA-C albuterol sulfate 90 mcg/actuation (Ventolin HFA) 1 puff inhalation Q4H 30 days budesonide (Pulmicort) 0.25 mg (2 mL) inhalation DAILY PRN 15 days cyclobenzaprine 10 mg PO Q8H PRN 30 days fluoxetine 10 mg PO DAILY 30 days montelukast 10 mg PO DAILY 90 days oxycodone 10 mg PO TID 28 days pantoprazole 40 mg PO DAILY Tobacco use date assessed: 01/23/24 Dental Screening Dental Screen Date: 10/24/23 HPI f/u pain management HPI Details Patient is a 53-year-old male here today for a follow-up visit..? Patient has a past medical history significant asthma, generalized anxiety disorder, former smoker, opiate dependence and lumbar degenerative disc disease. . Lumbar degenerative disc disease:? Did have emergent lumbar surgery in 2013, has gotten lumbar spine injections without any significant relief of his chronic lumbar spine pain, he has not interested in spinal stimulation. Has no further follow-up with [facility] pain management ?Continues with the use of long-term opiate pain medication.? Has had no signs of abuse and most recent urine drug screen acceptable. . He does have multilevel disc disease in his lumbar spine and continues to have worsening pain with radiculopathy down lower extremities.? He has an upcoming MRI for re-evaluation of his lumbar spine continued pain. Currently continues on oxycodone 10 mg t.i.d. he does report his pain is fairly well managed and is able to continue his activities of daily living. Does have a hobby of woodworking making [employer]. Urine drug screens have been appropriate, no overt signs does use or abuse. AT THIS TIME HE HAS NOT INTERESTED IN ANY SURGERIES OR INJECTIONS -WILL CONTINUE TO MANAGE WITH OPIATE PAIN MEDICATION AND ARAVIND IS WILLING TO SLOWLY WEAN HIS NEXT DOSE OF OXYCODONE. HE GETS 84 TABLETS FOR 28 DAY SUPPLY. NEXT SCRIPT WILL BE 80 TABLETS FOR 28 DAY SUPPLY. .. Generalized anxiety disorder: Continues with the use of fluoxetine 10 mg which has been effective on reducing his anxiety. Laboratory Tests 08/28/19 02/23/23 10:23 08:40 Urine Opiates Scre en POSITIVE H POSITIVE H Laboratory Tests 08/28/19 02/23/23 02/23/23 10:23 08:34 08:40 RBC Creatinine PSA Screen 1.43 Urine Opiates Scre en POSITIVE H POSITIVE H 10/24/23 01/19/24 10:55 08:23 RBC 4.49 L Creatinine 0.81 PSA Screen 1.54 Urine Opiates Scre en POSITIVE H PFSH Medical History Asthma Carpal tunnel syndrome, bilateral Chronic right hip pain Disc degeneration, lumbar Failed back syndrome Failed back syndrome, lumbar GERD (gastroesophageal reflux disease) Lumbar spondylosis Medication reaction Sacroiliitis, not elsewhere classified Surgical History History of hemilaminectomy Family History Father Cirrhosis of liver Mother Stomach cancer Brother Osteoporosis Son Bipolar 1 disorder Mental health disorder Social History Housing: House Alcohol intake: never Patient Tobacco Use Status: Former Tobacco user Tobacco use type: Cigarette e-Cigarette/Vaping Use: Never Used Second Hand Smoke Exposure: No service: No Current occupational status: disabled Current occupation: patient is currently disabled since 2013 from several different injury Cognitive needs: Yes Hearing needs: No Vision needs: No Questionnaire Thrive Questionnaire Date Thrive assessed: 10/24/23 DEVORA-7 AMB Questionnaire DEVORA-7 Date DEVORA - 7 assessed: 10/24/23 Source: Developed by Drs. Joe Cordero, Zuleika Kingston, Andrew Dorsey and colleagues, with an educational omer from [employer]. Review of Systems Const Denies headache(s) Eyes Denies loss of vision ENT Denies vertigo, Denies dizziness, Denies headache(s) and Denies sore throat Card Denies chest pain, Denies leg edema and Denies lightheadedness Resp Denies cough, Denies hemoptysis and Denies wheezing GI Denies abdominal pain, Denies melena, Denies constipation, Denies diarrhea and Denies vomiting Denies dysuria, Denies urinary frequency and Denies urinary urgency Musc Denies arthralgias, Denies joint swelling, Denies numbness and Denies tingling Neuro Denies Abnormal speech present, Denies behavioral changes, Denies vertigo, Denies dizziness, Denies headache(s), Denies loss of vision, Denies memory loss, Denies numbness and Denies tingling Psych Denies anxiety, Denies behavioral changes, Denies depression, Denies memory loss and Denies panic attacks Tomasz/Lymph Denies easy bleeding and Denies easy bruising Aller/Immun Denies wheezing Physical exam (Primary Care) Vital Signs: Last Vital Signs Pulse 78 05/06/24 11:21 BP 122/82 05/06/24 11:21 Pulse Ox 97 05/06/24 11:21 Oxygen Delivery Method Room Air 05/06/24 11:21 BMI result Body Mass Index 23.1 Tobacco/Smoking Status: Tobacco use Status Tobacco use date assessed 01/23/24 05/06/24 11:18 Patient Tobacco Use Status Former Tobacco user 05/06/24 11:18 Tobacco use type Cigarette 05/06/24 11:18 e-Cigarette/Vaping Use Never Used 05/06/24 11:18 Are you ready to quit: Yes Tobacco cessation counseling provided: Yes Items discussed: [employer] Relapse Prevention: discussed the importance of a supportive environment, discussed negative mood or depression after quitting, weight gain after smoking is common and discussed dietary, exercise and/or lifestyle changes Number of minutes spent counselin CPT code: 26565 - 4-10 Minutes Thrive Assessment: Date of Thrive Assessment Date Thrive assessed 10/24/23 05/06/24 11:18 Const General: healthy appearing, no acute distress, alert and awake Nutritional Appearance: well nourished Orientation/consciousness: oriented to person, oriented to place and oriented to time HENMT Ears: TM's normal bilaterally General nose exam: Normal nasal mucous membranes and turbinates present Eyes Conjunctivae: conjunctivae normal Sclerae: sclerae normal Pupils: Equal, round and reactive pupils present Neck Neck: Yes no lymphadenopathy and Yes no JVD Thyroid: Thyroid normal Carotids: no bruits Resp Effort & Inspection: normal respiratory effort and not tachypneic Auscultation: no crackles, no rales, no rhonchi and no wheezes Cardio Rate: regular rate Rhythm: regular rhythm Heart sounds: no murmurs and normal S1 and S2 GI Palpation (GI): Soft to palpation, nontender, no hepatomegaly and no splenomegaly Auscultation: normal bowel sounds Skin General skin exam: no rashes or lesions noted and dry skin Neuro General: oriented to person, oriented to place and oriented to time Cranial nerves: Yes Equal, round and reactive pupils present Speech: No Abnormal speech present Gait exam (Neuro): Normal gait present Motor exam (neuro): no tremor noted Extrem Right upper extremity: full ROM Left upper extremity: full ROM Right lower extremity: full ROM; no edema Left lower extremity: full ROM; no edema Psych Mental Status: mental status grossly normal Speech and movement: Normal speech and movement present Affect: normal affect Attitude: cooperative Thought process: Normal thought process present Assessment and Plan Assessment & Plan (1) Failed back syndrome, lumbar: Code(s): M96.1 - Postlaminectomy syndrome, not elsewhere classified Plan: As per HPI patient continues to have lumbar spine pain for the past several years. Has seen pain management for years though has lost his follow-up and now needs PCP to manage his pain medication. Continues to use oxycodone 10 mg t.i.d. along with cyclobenzaprine . Has otherwise been responsible for getting his drug screens and pill counts have been appropriate during his time at [facility]. No overt signs of misuse. Of note has seen neurosurgeon in the past and was told he was not a surgical candidate to help fix is lumbar discs. HE IS NOW WILLING TO START SLOW WEAN OF NARCOTIC THE MEDICATION. (2) Opiate dependence: Code(s): F11.20 - Opioid dependence, uncomplicated Qualifiers: Substance use status: uncomplicated Qualified Code(s): F11.20 - Opioid dependence, uncomplicated Plan: Patient does understand he is dependent on opiates. Does report some fatigue which is likely related to his chronic opiate use. We did have a discussion about slowly weaning his overall daily dose of oxycodone and patient agrees and understands. (3) Smoker: Code(s): F17.200 - Nicotine dependence, unspecified, uncomplicated Plan: He does admit to still smoking 4 cigarettes per week. He has drastically cut down his smoking (4) DEVORA (generalized anxiety disorder): Code(s): F41.1 - Generalized anxiety disorder Plan: he does report his anxiety is fairly well controlled. Recently went through a break-up with his significant other. Coding Level of Care Code Est Pt Level 4 (14741) Diagnoses Failed back syndrome, lumbar M96.1 Uncomplicated opioid dependence F11.20 Substance use status: uncomplicated Smoker F17.200 DEVORA (generalized anxiety disorder) F41.1 Additional Codes Vital Signs *Quality* - CPT code: 88857 - 4-10 Minutes ([id number])
[2024-05-06 11:21] VITALS: BP 122/82; PULSE 78; O2SAT 97; BMI 23.1
== END 2024-05-06 11:55 | disposition home or self-care (01) ==
PROVIDERS: PCP Physician Assistant; Visit Provider Physician Assistant
DX: M96.1 Postlaminectomy syndrome, not elsewhere classified (principal); F11.20 Opioid dependence, uncomplicated; F17.200 Nicotine dependence, unspecified, uncomplicated; F41.1 Generalized anxiety disorder
CPT/HCPCS: 99214; 99406

== ENCOUNTER 2024-05-06 12:02 | Outpatient (REF) | payer MEDICARE, SELFPAY ==
[2024-05-06 12:55] LABS: Amphetamine Screen Urine Not Detected (Not Detect); Barbiturates, Urine Not Detected (Not Detect); Benzodiazepines Screen Urine Not Detected (Not Detect); Buprenorphine Scr Not Detected (Not Detect); Cannabinoid Screen Urine Not Detected (Not Detect); Cocaine Screen Urine Not Detected (Not Detect); Fentanyl, urine Not Detected (Not Detect); Methadone Screen, Urine Not Detected (Not Detect); Opiate Screen Urine Not Detected (Not Detect); Oxycodone Screen Urine Positive (Not Detect); Phencyclidine Screen Urine Not Detected (Not Detect)
[2024-05-06 14:21] LABS: Rheumatoid Factor < 13.0 IU/mL (<15.0)
[2024-05-06 14:26] LABS: Erythrocyte Sedimentation Rate 2 MM/HR (0-15)
[2024-05-07 15:08] LABS: Cyclic Citrullinated Peptide <16 UNITS
[2024-05-15 13:44] LABS: ANA Pattern 2 Nuclear, Homogeneous; ANA Titer 2 1:40 titer; Anti Nuclear Antibody Screen POSITIVE (NEGATIVE); Anti Nuclear Antibody Titer 1:40 titer
== END 2024-05-06 12:03 | disposition home or self-care (01) ==
LOC: HO.LAB 12:02
PROVIDERS: PCP Physician Assistant; Visit Provider Physician Assistant
DX: F11.20 Opioid dependence, uncomplicated (principal); M79.641 Pain in right hand; M79.642 Pain in left hand
CPT/HCPCS: 80307; 85652; 86038; 86039; 86200; 86431

== ENCOUNTER 2024-08-13 08:40 | Outpatient (AMB) | payer MEDICARE, SELFPAY ==
[2024-08-13 08:57] VITALS: BP 142/86; PULSE 80; O2SAT 96; BMI 24.3
--- NOTE | 2024-08-13 08:57 | AM.OFFVISMDC ---
Intake Vital Signs 08/13/24 08:57 Height 5 ft 8 in Weight 160 lb BMI 24.3 BP 142/86 H Blood Pressure Location Lt brachial Position Sitting Pulse 80 Pulse Source Pulse Oximeter Pulse Oximetry (%) 96 Oxygen Delivery Method Room Air Intake Visit Reasons: AWV G0438/ Pain management Project Engineering Director Required: No Accompanied by: Self / Same As Patient Allergies tramadol [From Ultram] Allergy (Severe, Verified 08/13/24 09:26) Hives naloxone [From Suboxone] Allergy (Mild, Verified 08/13/24 09:26) Hives aspirin Allergy (Unknown, Verified 08/13/24 09:26) Unknown ibuprofen [Advil] Allergy (Unknown, Verified 08/13/24 09:26) Unknown morphine Allergy (Unknown, Verified 08/13/24 09:) Unknown Sulfa (Sulfonamide Antibiotics) Allergy (Unknown, Verified 08/13/24 09:26) Unknown carisoprodol [From Soma] Adverse Reaction (Severe, Verified 08/13/24 09:26) fever, rash buprenorphine Adverse Reaction (Intermediate, Verified 08/13/24 09:26) hives NSAIDS Allergy (Unknown, Uncoded 08/13/24 09:26) Stomach Upset Medication List - Last Reconciled 08/13/24 by Jerome Meneses PA-C albuterol sulfate 90 mcg/actuation (Ventolin HFA) 1 puff inhalation Q4H 30 days budesonide (Pulmicort) 0.25 mg (2 mL) inhalation DAILY PRN 15 days cyclobenzaprine 10 mg PO Q8H PRN 30 days fluoxetine 10 mg PO DAILY 30 days montelukast 10 mg PO DAILY 90 days oxycodone 10 mg PO TID PRN 28 days pantoprazole 40 mg PO DAILY 90 days tadalafil 20 mg PO DAILY 5 days HPI AWV G0438/ Pain management HPI Details Patient is a 54-year-old male here today for an annual wellness visit. Patient has a past medical history significant for GERD, chronic low back pain, anxiety, tobacco dependency. Today we discussed patient's care management team and end of life planning. Given a MOLST form today.. Also we did discuss patient's comprehensive care plan which was scanned into patient's documents. Vaccines: Up-to-date with COVID vaccine, pneumonia vaccine needs tetanus vaccine Colon cancer screening: Patient willing to do Cologuard Laboratory Tests 08/28/19 02/23/23 10/24/23 10:23 08:40 10:55 RBC Hgb Fasting Glucose PSA Screen Urine Opiates Scre en POSITIVE H POSITIVE H POSITIVE H 01/19/24 08:23 RBC 4.49 L Hgb 14.7 Fasting Glucose 99 PSA Screen 1.54 Urine Opiates Scre en HPI Comments History of Present Illness Details reviewed past medical history- yes reviewed surgical / hospitalization history- yes reviewed current medications- yes reviewed family history- yes home safety throw rugs? grab bars? raised toilet seat? working smoke detectors? activities of daily living difficulty bathing or showering? difficulty dressing? difficulty using the toilet? difficulty getting in and out of bed? difficulty walking? receives help from other person's with any of the above tasks? instrumental activities of daily living uses telephone - gets to place out of walking distance- go shopping for groceries- repairs own meals- does own minor home maintenance- does own laundry- does own housework- manages own money- currently takes medication- end of life planning discussed advanced directives- yes advanced directives on file? discussed wishes expressed in advanced directives. fall risk have you had any falls with injuries in the past year? have you had 2 or more falls in the past year? fall risk assessment: [facility] Medical History Chronic right hip pain Disc degeneration, lumbar Sacroiliitis, not elsewhere classified Lumbar spondylosis Failed back syndrome, lumbar Medication reaction Carpal tunnel syndrome, bilateral Failed back syndrome GERD (gastroesophageal reflux disease) Asthma Surgical History History of hemilaminectomy Family History Father Cirrhosis of liver Mother Stomach cancer Brother Osteoporosis Son Bipolar 1 disorder Mental health disorder Social History Housing: House Alcohol intake: never Patient Tobacco Use Status: Former Tobacco user Tobacco use type: Cigarette e-Cigarette/Vaping Use: Never Used Second Hand Smoke Exposure: No service: No Current occupational status: disabled Current occupation: patient is currently disabled since 2014 from several different injury Cognitive needs: Yes Hearing needs: No Vision needs: No Questionnaire Medicare Wellness Checkup What is your age?: 65-69 (45-59) What gender do you identify with?: male During the past 4 weeks, how much have you been bothered by emotional problems such as feeling anxious, depressed, irritable, sad or downhearted, and blue?: not at all During the past 4 weeks, has your physical & emotional health limited your social activities with family, friends, neighbors, or groups?: moderately During the past 4 weeks, how much bodily pain have you generally had?: severe pain During the past 4 weeks, was someone available to help you if you needed & wanted help?: yes, as much as I wanted During the past 4 weeks, what was the hardest physical activity you could do for at least 2 minutes?: moderate Can you get to places out of walking distance without help? (For eg., can you travel alone on buses, taxis or drive your car?): Yes Can you go shopping for groceries or clothes without someone's help?: Yes Can you prepare your own meals?: Yes Can you do your housework without help?: Yes Because of any health problems, do you need the help of another person with your personal care needs such as eating, bathing, dressing or getting around the house?: No Can you handle your own money without help?: Yes During the past 4 weeks, how would you rate your health in general?: fair During the past 4 weeks how have things been going for you?: good & bad parts about equal Are you having difficulties driving your car?: no Do you always fasten your seat belt when you are in a car?: yes, usually During past 4 weeks, have you been bothered by the following: never: Problems using the telephone?, seldom: Falling or dizzy when standing up and sometimes: Trouble eating well?, Teeth or denture problems? and Tiredness or fatigue? Have you fallen 2 or more times in the past year?: Yes Are you afraid of falling?: No Are you a smoker?: no During the past 4 weeks, how many drinks of wine, beer, or other alcoholic beverages did you have?: 1 drink or less per week Do you exercise for about 20 minutes 3 or more times a week?: yes, some of the time Have you been given information to help with the following?: yes: Hazards in your house that might hurt you? and yes: Keeping track of your medications? How often do you have trouble taking medicines the way you have been told to take them?: I always take medicine as prescribed How confident are you that you can control & manage most of your health problems?: very confident What is your race?: or origin or descent Mini Mental State Exam (MMSE) Orientation What is the (year) (season) (date) (day) (month)?: year Where are we (state) (county) (town or city) (hospital) (floor)?: town or city Attention & Calculation (CHOOSE ONE) Spell WORLD backwards (DLROW): 5 letters Score Score: 7 Activity of Daily Living Bathing - sponge bath, tub bath or shower: receives no assistance (gets in/out by self, if usual bathing means Dressing - getting clothes from closets & drawers, including inner/outer garments & fasteners.: gets clothes & gets completely dressed without help Toileting - going to the 'toilet room' for urine/bowel elimination & cleaning self/arranging clothes: goes to toilet room, cleans self, arranges clothes without help Transfer: moves in & out of bed and chair without help (may use support object) Continence: controls urination/bowel movements completely by self Feeding: feeds self without help Total Score: 0 Information obtained from: patient Using telephone: independent Traveling: independent Shopping: needs assistance Preparing meals: independent Housework: independent Taking medicine: independent Managing money: independent PHQ-9 Over the last 2 weeks, how often have you been bothered by any of the following problems? 1. Little interest or pleasure in doing things: several days 2. Feeling down, depressed, or hopeless: not at all 3. Trouble falling or staying asleep, or sleeping too much: several days 4. Feeling tired or having little energy: more than half the days 5. Poor appetite or overeating: several days 6. Feeling bad about yourself - or that you are a failure or have let yourself or your family down: not at all 7. Trouble concentrating on things, such as reading the newspaper or watching television: several days 8. Moving or speaking so slowly that other people could have noticed. Or the opposite - being so fidgety or restless that you have been moving around a lot more than usual: not at all 9. Thoughts that you would be better off or of hurting yourself in some way: not at all Total score: 6 Depression Screening Interpretation: Positive Depression Screening Follow-up: Existing condition Depression Screening Done: Yes 20783 - PHQ-9 Billing: Yes Source: Developed by Drs. Joe Cordero, Zuleika Kingston, Andrew Dorsey and colleagues, with an educational omer from [employer]. Physical Exam Vital Signs: Last Vital Signs Pulse 80 08/13/24 08:57 BP 142/86 H 08/13/24 08:57 Pulse Ox 96 08/13/24 08:57 Oxygen Delivery Method Room Air 08/13/24 08:57 BMI result Body Mass Index 24.3 HEENT Other: hearing screening whisper test- pass Eyes Other: vision screening- 20 20 OS OD OU Other: urinary incontinence? no Neuro Other: balance Romberg- normal tandem walk test- able walk-in turned test-able rise from sit to stand- within 2 seconds Assessment & Plan Assessment & Plan (1) Medicare annual wellness visit, initial: Code(s): Z00.00 - Encounter for general adult medical examination without abnormal findings Plan: As per HPI (2) Colon cancer screening: Code(s): Z12.11 - Encounter for screening for malignant neoplasm of colon Plan: Patient at average risk for colon cancer. Patient willing to do Cologuard Orders: Orders Prostate Specific Antigen Scr Today Z12.11 - Encounter for screening for malignant neoplasm of colon, Z12.5 - Encounter for screening for malignant neoplasm of prostate Comprehensive [place]. Panel Fast Today Z13.1 - Encounter for screening for diabetes mellitus Referrals Cologuard Test Z12.11 - Encounter for screening for malignant neoplasm of colon Medications: New acetaminophen ER (Tylenol Arthritis Pain) 650 mg PO Q12H 60 tabs 3RF 30 days M19.90 - Unspecified osteoarthritis, unspecified site, M47.816 - Spondylosis without myelopathy or radiculopathy, lumbar region fluoxetine 20 mg PO DAILY 90 caps 1RF 90 days F41.1 - Generalized anxiety disorder Discontinued fluoxetine Discontinued Reason: Doctor's Order 10 mg PO DAILY 30 days 30 caps 6RF F41.1 - Generalized anxiety disorder Quality Reporting (2019) Depression/Bipolar (159/160/161/177) PHQ-9: Total score: 6 Coding Level of Care Code Medicare First (G0438) Diagnoses Medicare annual wellness visit, initial Z00.00 Colon cancer screening Z12.11 CPT Codes Advance Care Planning - Time spent: 1-15 minutes, not on file ([id number]) Advance Care Planning Advance Care Planning discussion: Exists, not on file Date of discussion: 08/13/24 Forms completed: LUISA Time spent: 1-15 minutes, not on file Actual minutes spent: 4
== END 2024-08-13 09:42 | disposition home or self-care (01) ==
PROVIDERS: PCP Physician Assistant; Visit Provider Physician Assistant
DX: Z00.00 Encounter for general adult medical examination without abnormal findings (principal); Z12.11 Encounter for screening for malignant neoplasm of colon

== ENCOUNTER → 2024-08-13 08:40 | Outpatient (BNVA) | payer MEDICARE, SELFPAY | PROVIDERS: PCP Physician Assistant; Visit Provider Physician Assistant ==

== ENCOUNTER 2024-10-30 08:04 | Outpatient (REF) | payer MEDICARE, SELFPAY ==
[2024-10-30 10:19] LABS: Alanine Aminotransferase 24 U/L (0-40); Albumin Level 4.1 g/dL (3.5-5.0); Alkaline Phosphatase 92 U/L (39-117); Anion Gap 11 (12-20); Aspartate Amino Transferase 29 U/L (5-37); Bilirubin Total 0.5 mg/dL (0.0-1.0); Blood Urea Nitrogen 9 mg/dL (9-16); Calcium 8.7 mg/dL (8.4-10.2); Carbon Dioxide 27 mmol/L (22-29); Chloride 107 mmol/L (96-108); Estimated Glomerular Filt Rate > 60; Glucose Fasting 107 mg/dL (60-99); Potassium 3.7 mmol/L (3.3-5.1); Sodium 141 mmol/L (135-145)
[2024-10-30 10:40] LABS: Prostate Specific Antigen Scr 1.99 ng/mL (<0.05-4.0)
== END 2024-10-30 08:05 | disposition home or self-care (01) ==
LOC: HO.HMGCLDS 08:04
PROVIDERS: PCP Physician Assistant; Visit Provider Physician Assistant
DX: Z13.1 Encounter for screening for diabetes mellitus (principal); Z12.5 Encounter for screening for malignant neoplasm of prostate; Z12.11 Encounter for screening for malignant neoplasm of colon
CPT/HCPCS: 36415; 80053; 84153

== ENCOUNTER 2024-11-13 08:58 | Outpatient (AMB) | payer MEDICARE, SELFPAY ==
--- NOTE | 2024-11-13 09:06 | MHC.PC.OV ---
Vital Signs 11/13/24 09:08 Height 5 ft 8 in Weight 160 lb 6 oz BMI 24.4 BP 132/80 Blood Pressure Location Rt brachial Position Sitting Pulse 88 Pulse Source Pulse Oximeter Temp 97.8 F Temp Source Skin Pulse Oximetry (%) 95 Oxygen Delivery Method Room Air Intake Visit Reasons: f/u pain management Intake Note: Patient is here to follow up on pain management. 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: Not Required per policy Accompanied by: Self / Same As Patient Allergies tramadol [From Ultram] Allergy (Severe, Verified 11/13/24 09:20) Hives naloxone [From Suboxone] Allergy (Mild, Verified 11/13/24 09:20) Hives aspirin Allergy (Unknown, Verified 11/13/24 09:20) Unknown ibuprofen [Advil] Allergy (Unknown, Verified 11/13/24 09:20) Unknown morphine Allergy (Unknown, Verified 11/13/24 09:20) Unknown Sulfa (Sulfonamide Antibiotics) Allergy (Unknown, Verified 11/13/24 09:20) Unknown carisoprodol [From Soma] Adverse Reaction (Severe, Verified 11/13/24 09:20) fever, rash buprenorphine Adverse Reaction (Intermediate, Verified 11/13/24 09:20) hives NSAIDS Allergy (Unknown, Uncoded 11/13/24 09:20) Stomach Upset Medication List - Last Reconciled 11/13/24 by Jerome Meneses PA-C acetaminophen ER (Tylenol Arthritis Pain) 650 mg PO Q12H 30 days albuterol sulfate 90 mcg/actuation (Ventolin HFA) 1 puff inhalation Q4H 30 days budesonide (Pulmicort) 0.25 mg (2 mL) inhalation DAILY PRN 15 days cyclobenzaprine 10 mg PO Q8H PRN 30 days fluoxetine 20 mg PO DAILY 90 days montelukast 10 mg PO DAILY 90 days oxycodone 10 mg PO TID PRN 28 days pantoprazole 40 mg PO DAILY 90 days prednisone 10 mg PO DIRECTED 6 days tadalafil 20 mg PO DAILY 5 days Tobacco use date assessed: 11/13/24 Dental Screening Dental Screen Date: 11/13/24 Did you have a dental visit in the last 12 months?: Yes Did you have a dental problem in the last 6 months where you did not have access to dental care?: No Was dental information given to patient?: Patient has dentist HPI f/u pain management HPI Details Patient is a 53-year-old male here today for a follow-up visit..? Patient has a past medical history significant asthma, generalized anxiety disorder, former smoker, opiate dependence and lumbar degenerative disc disease. Concern--> he does report he continues to have bilateral hand numbness tingling and finger catching. He was due to for an EMG though unfortunately was not scheduled. 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 PLAN: Will try for EMG to evaluate for median/cubital neuropathy. Also will refer to occupational therapy to help him with his hand strength and dexterity . Lumbar degenerative disc disease:? Did have emergent lumbar surgery in 2013, has gotten lumbar spine injections without any significant relief of his chronic lumbar spine pain, he has not interested in spinal stimulation. Has no further follow-up with [facility] pain management ?Continues with the use of long-term opiate pain medication.? Has had no signs of abuse and most recent urine drug screen acceptable. . He does have multilevel disc disease in his lumbar spine and continues to have worsening pain with radiculopathy down lower extremities.? He has an upcoming MRI for re-evaluation of his lumbar spine continued pain. Currently continues on oxycodone 10 mg t.i.d. he does report his pain is fairly well managed and is able to continue his activities of daily living. Does have a hobby of [employer] making [employer]. Urine drug screens have been appropriate, no overt signs does use or abuse. AT THIS TIME HE HAS NOT INTERESTED IN ANY SURGERIES OR INJECTIONS -WILL CONTINUE TO MANAGE WITH OPIATE PAIN MEDICATION AND ARAVIND IS WILLING TO SLOWLY WEAN HIS NEXT DOSE OF OXYCODONE. WILL RESTART HIS LOW OPIATE WEAN IN DECEMBER OF 2024. WILL REDUCE HIS MONTHLY PILL COUNT #66 TABLETS , AND REDUCE BY 2 TABLETS EVERY MONTH .. Generalized anxiety disorder: Continues with the use of fluoxetine 10 mg which has been effective on reducing his anxiety. Laboratory Tests 08/28/19 02/23/23 10:23 08:40 Urine Opiates Scre en POSITIVE H POSITIVE H Laboratory Tests 08/28/19 02/23/23 02/23/23 10:23 08:34 08:40 RBC Creatinine PSA Screen 1.43 Urine Opiates Scre en POSITIVE H POSITIVE H 10/24/23 01/19/24 10:55 08:23 RBC 4.49 L Creatinine 0.81 PSA Screen 1.54 Urine Opiates Scre en POSITIVE H PFSH Medical History Chronic right hip pain Disc degeneration, lumbar Sacroiliitis, not elsewhere classified Lumbar spondylosis Failed back syndrome, lumbar Medication reaction Carpal tunnel syndrome, bilateral Failed back syndrome GERD (gastroesophageal reflux disease) Asthma Surgical History History of hemilaminectomy Family History Father Cirrhosis of liver Mother Stomach cancer Brother Osteoporosis Son Bipolar 1 disorder Mental health disorder Social History Housing: House Alcohol intake: never Patient Tobacco Use Status: Former Tobacco user Tobacco use type: Cigarette e-Cigarette/Vaping Use: Never Used Second Hand Smoke Exposure: Yes service: No Current occupational status: disabled Current occupation: patient is currently disabled since 2014 from several different injury Cognitive needs: Yes (Cane) Hearing needs: No Vision needs: No Questionnaire PHQ-9 Over the last 2 weeks, how often have you been bothered by any of the following problems? 1. Little interest or pleasure in doing things: not at all 2. Feeling down, depressed, or hopeless: not at all 3. Trouble falling or staying asleep, or sleeping too much: not at all 4. Feeling tired or having little energy: not at all 5. Poor appetite or overeating: not at all 6. Feeling bad about yourself - or that you are a failure or have let yourself or your family down: not at all 7. Trouble concentrating on things, such as reading the newspaper or watching television: not at all 8. Moving or speaking so slowly that other people could have noticed. Or the opposite - being so fidgety or restless that you have been moving around a lot more than usual: not at all 9. Thoughts that you would be better off or of hurting yourself in some way: not at all Total score: 0 Depression Screening Interpretation: Negative Depression Screening Done: Yes 62007 - PHQ-9 Billing: Yes Source: Developed by Drs. Joe Cordero, Zuleika Kingston, Andrew Dorsey and colleagues, with an educational omer from [employer]. Thrive Questionnaire Date Thrive assessed: 11/13/24 I am a: Patient What is your living situation today?: I have a steady place to live Within the past 12 months, did the food you bought not last and you didn't have the money to get more?: Never true Within the past 12 months, did you worry whether your food would run out before you got money to buy more?: Never true Do you have trouble paying for medicines?: No Do you have trouble getting transportation to medical appointments?: No Do you have trouble paying your heating and electricity bill?: No Do you have trouble taking care of your child, family member or friend?: No Do you have trouble with day-to-day activities such as bathing, preparing meals, shopping, managing finances, etc.?: No Are you currently unemployed and looking for a job?: No Are you interested in more education?: No Please select the resources that you would like help with: None Currently or been in a relationship where the following occur: No concerns reported THRIVE Score: 0 AUDIT C Alcohol Use Questionnaire (AUDIT-C) 1. How often do you have a drink containing alcohol?: Monthly or less 2. How many drinks containing alcohol do you have on a typical day when you are drinking?: 1 or 2 Total Score: 1 DEVORA-7 AMB Questionnaire DEVORA-7 Date DEVORA - 7 assessed: 11/13/24 Feeling nervous, anxious, or on edge: 1 = Several days Not being able to stop or control worryin = Not at all Worrying too much about different things: 0 = Not at all Trouble relaxin = More than half the days Being so restless that it is hard to sit still: 2 = More than half the days Becoming easily annoyed or irritable: 0 = Not at all Feeling afraid as if something awful might happen: 0 = Not at all Total DEVORA-7 score (0-4 normal; 5-9 mild; 10-14 moderate; 15-21 severe): 5 Source: Developed by Zuleika Whitman Kurt Kroenke and colleagues, with an educational omer from [employer]. DEVORA-7 Assessment Billing DEVORA-7 Assessment Tool: DEVORA-7 Assessment 65879 Review of Systems Const Denies headache(s) Eyes Denies loss of vision ENT Denies vertigo, Denies dizziness, Denies headache(s) and Denies sore throat Card Denies chest pain, Denies leg edema and Denies lightheadedness Resp Denies cough, Denies hemoptysis and Denies wheezing GI Denies abdominal pain, Denies melena, Denies constipation, Denies diarrhea and Denies vomiting Denies dysuria, Denies urinary frequency and Denies urinary urgency Musc Denies arthralgias, Denies joint swelling, Denies numbness and Denies tingling Neuro Denies Abnormal speech present, Denies behavioral changes, Denies vertigo, Denies dizziness, Denies headache(s), Denies loss of vision, Denies memory loss, Denies numbness and Denies tingling Psych Denies anxiety, Denies behavioral changes, Denies depression, Denies memory loss and Denies panic attacks Tomasz/Lymph Denies easy bleeding and Denies easy bruising Aller/Immun Denies wheezing Physical exam (Primary Care) Vital Signs: Last Vital Signs Temp 97.8 F 11/13/24 09:08 Pulse 88 11/13/24 09:08 BP 132/80 11/13/24 09:08 Pulse Ox 95 11/13/24 09:08 Oxygen Delivery Method Room Air 11/13/24 09:08 BMI result Body Mass Index 24.4 Tobacco/Smoking Status: Tobacco use Status Tobacco use date assessed 11/13/24 11/13/24 09:13 Patient Tobacco Use Status Former Tobacco user 11/13/24 09:13 Tobacco use type Cigarette 11/13/24 09:13 e-Cigarette/Vaping Use Never Used 11/13/24 09:13 PHQ-9: PHQ-9 Score PHQ-9: Total score 0 11/13/24 09:22 Depression Screening Interpretation: Negative Thrive Assessment: Date of Thrive Assessment Date Thrive assessed 11/13/24 11/13/24 09:13 Currently or been in a relationship where the following occur: No concerns reported Const General: healthy appearing, no acute distress, alert and awake Nutritional Appearance: well nourished Orientation/consciousness: oriented to person, oriented to place and oriented to time [facility] Ears: TM's normal bilaterally General nose exam: Normal nasal mucous membranes and turbinates present Eyes Conjunctivae: conjunctivae normal Sclerae: sclerae normal Pupils: Equal, round and reactive pupils present Neck Neck: Yes no lymphadenopathy and Yes no JVD Thyroid: Thyroid normal Carotids: no bruits Resp Effort & Inspection: normal respiratory effort and not tachypneic Auscultation: no crackles, no rales, no rhonchi and no wheezes Cardio Rate: regular rate Rhythm: regular rhythm Heart sounds: no murmurs and normal S1 and S2 GI Palpation (GI): Soft to palpation, nontender, no hepatomegaly and no splenomegaly Auscultation: normal bowel sounds Skin General skin exam: no rashes or lesions noted and dry skin Neuro General: oriented to person, oriented to place and oriented to time Cranial nerves: Yes Equal, round and reactive pupils present Speech: No Abnormal speech present Gait exam (Neuro): Normal gait present Motor exam (neuro): no tremor noted Extrem Right upper extremity: full ROM Left upper extremity: full ROM Right lower extremity: full ROM; no edema Left lower extremity: full ROM; no edema Psych Mental Status: mental status grossly normal Speech and movement: Normal speech and movement present Affect: normal affect Attitude: cooperative Thought process: Normal thought process present Coding Level of Care Code Est Pt Level 4 (87839) Diagnoses Failed back syndrome, lumbar M96.1 Uncomplicated opioid dependence F11.20 Substance use status: uncomplicated Paresthesia of hand, bilateral R20.2 Additional Codes PHQ-9 - 82839 - PHQ-9 Billing: Yes ([id number]) DEVORA-7 Assessment Billing - DEVORA-7 Assessment Tool: DEVORA-7 Assessment 05665 ([id number]) Assessment & Plan Assessment & Plan (1) Failed back syndrome, lumbar: Code(s): M96.1 - Postlaminectomy syndrome, not elsewhere classified Category: Medical Plan: Patient continues to have pretty significant lower back pain, he does report having lower extremity weakness in a couple of falls. He is concerned about worsening disc issue in his back. We considering an MRI of his lumbar spine again. As far as his pain medication regime we will continues low wean of his dose of oxycodone. As of December of 2024 will continue to reduce by 2 tablets monthly. (2) Opiate dependence: Code(s): F11.20 - Opioid dependence, uncomplicated Category: Medical Qualifiers: Substance use status: uncomplicated Qualified Code(s): F11.20 - Opioid dependence, uncomplicated Plan: As above patient has dependency to opiates. Will continue to slowly wean his dose. (3) Paresthesia of hand, bilateral: Code(s): R20.2 - Paresthesia of skin Category: Medical Plan: He does report having bilateral hand paresthesias and finger locking. Likely benefit from occupational therapy. Will send for EMG testing to evaluate for median or ulnar neuropathy. Orders: Orders NE electromyogram (EMG) Today R20.2 - Paresthesia of skin OT Evaluation and Treatment Today M79.641 - Pain in right hand, M79.642 - Pain in left hand
[2024-11-13 09:08] VITALS: BP 132/80; PULSE 88; TEMP 36.6; O2SAT 95; BMI 24.4
== END 2024-11-13 09:48 | disposition home or self-care (01) ==
PROVIDERS: PCP Physician Assistant; Visit Provider Physician Assistant
DX: M96.1 Postlaminectomy syndrome, not elsewhere classified (principal); F11.20 Opioid dependence, uncomplicated; R20.2 Paresthesia of skin

== ENCOUNTER → 2024-11-13 08:58 | Outpatient (BNVA) | payer MEDICARE, SELFPAY | PROVIDERS: PCP Physician Assistant; Visit Provider Physician Assistant | DX: M96.1 Postlaminectomy syndrome, not elsewhere classified (principal); F11.20 Opioid dependence, uncomplicated; R20.2 Paresthesia of skin | CPT/HCPCS: 96127; 99212 ==

== ENCOUNTER 2025-01-02 11:37 | Outpatient (AMB) | payer MEDICARE, MEDICAID, SELFPAY ==
--- NOTE | 2025-01-02 11:42 | MHC.OFFWIV ---
Intake Vital Signs 01/02/25 11:44 Height 5 ft 8 in Weight 164 lb BMI 24.9 BP 170/120 H Blood Pressure Location Lt brachial Position Sitting Pulse 104 H Pulse Source Pulse Oximeter Temp 98.2 F Temp Source Oral Pulse Oximetry (%) 94 Oxygen Delivery Method Room Air Intake Visit Reasons: PE Sinus infection, bronchitis Intake Note: Patient here for sinus pressure, SOB and cough after being in a basement full of mold. Patient Tobacco Use Status: Former Tobacco user Allergies tramadol [From Ultram] Allergy (Severe, Verified 01/02/25 11:44) Hives naloxone [From Suboxone] Allergy (Mild, Verified 01/02/25 11:44) Hives aspirin Allergy (Unknown, Verified 01/02/25 11:44) Unknown ibuprofen [Advil] Allergy (Unknown, Verified 01/02/25 11:44) Unknown morphine Allergy (Unknown, Verified 01/02/25 11:44) Unknown Sulfa (Sulfonamide Antibiotics) Allergy (Unknown, Verified 01/02/25 11:44) Unknown carisoprodol [From Soma] Adverse Reaction (Severe, Verified 01/02/25 11:44) fever, rash buprenorphine Adverse Reaction (Intermediate, Verified 01/02/25 11:44) hives NSAIDS Allergy (Unknown, Uncoded 01/02/25 11:44) Stomach Upset Do you need a note to return to daycare/school/sports/work: No HPI HPI Comments History of Present Illness Details History - The patient is a 54-year-old male presenting with symptoms of acute sinusitis following mold exposure two days prior, with symptoms persisting for three days. - The patient reports initiating a previously prescribed 6 day prednisone taper shortly after symptom onset - Complaints include shortness of breath and nasal congestion, treated with Formula 44D and a saline nasal spray. Additionally, the patient experiences persistent headaches associated with a fluctuating fever from 102?F to 104?F, temporarily managed with acetaminophen. - No body aches are reported, and no ear pain is present despite fluid in the sinuses as observed by the examining physician. - The patient has a background of asthma and experiences gastroparesis, limiting NSAID use, while managing headaches with 650mg acetaminophen. Physical Exam General: Cooperative, healthy appearing, comfortable and no acute distress Orientation/consciousness: Patient oriented x3 Limitations: No limitations Head: Normal to inspection Ears: Hearing grossly normal bilaterally, external ears normal and TM's normal bilaterally Nose: Normal external nose present, Normal nares present and No nasal discharge present Face and sinus: Normal facial exam and Yes sinuses nontender Mouth: Normal oral and palatal mucosa present and moist mucous membranes Throat: Yes tonsils normal, Yes uvula midline. Posterior oropharynx erythema Eyes: Appearance normal, both eyes and all related structures Neck: Normal visual inspection Respiratory: Slight exp wheeze on the left and vesicular sounds on the right lower lobe Normal respiratory effort, able to speak in complete sentences, Actively coughing, no respiratory distress, not tachypneic, no tripod positioning and no use of accessory muscles. Cardiovascular: Regular rate and rhythm. Normal S1 and S2 Skin: No rashes or lesions noted Neuro: Patient oriented x3 Extremities: Normal to inspection and Yes no clubbing, cyanosis or edema [facility] Medical History Chronic right hip pain Disc degeneration, lumbar Sacroiliitis, not elsewhere classified Lumbar spondylosis Failed back syndrome, lumbar Medication reaction Carpal tunnel syndrome, bilateral Failed back syndrome GERD (gastroesophageal reflux disease) Asthma Surgical History History of hemilaminectomy Family History Father Cirrhosis of liver Mother Stomach cancer Brother Osteoporosis Son Bipolar 1 disorder Mental health disorder Social History Housing: House Alcohol intake: never Patient Tobacco Use Status: Former Tobacco user Tobacco use type: Cigarette e-Cigarette/Vaping Use: Never Used Second Hand Smoke Exposure: Yes service: No Current occupational status: disabled Current occupation: patient is currently disabled since 2013 from several different injury Cognitive needs: Yes (Cane) Hearing needs: No Vision needs: No Review of Systems Const All systems reviewed & are unremarkable except as noted in HPI and below Physical Exam Vital Signs: Last Vital Signs Temp 98.2 F 01/02/25 11:44 Pulse 104 H 01/02/25 11:44 BP 170/120 H 01/02/25 11:44 Pulse Ox 94 01/02/25 11:44 Oxygen Delivery Method Room Air 01/02/25 11:44 BMI result Body Mass Index 24.9 Assessment & Plan Assessment & Plan (1) Lower respiratory infection (e.g., bronchitis, pneumonia, pneumonitis, pulmonitis): Code(s): J22 - Unspecified acute lower respiratory infection Plan: VSS, pt well appearing, PE remarkable for exp wheezes and vesicular lung sounds. I will arrange a chest X-ray to rule out pneumonia due to the reported fever and pulmonary findings. Additionally, I will send a prescription for Fluticasone nasal spray Flonase to aid with the sinus congestion and provide instructions for its proper use. The patient is advised to continue with acetaminophen for headache relief, increasing the dosage to 1000 mg every eight hours with a maximum daily intake of 3g to ensure efficacy while considering NSAIDs are contraindicated. For asthma, we will maintain the current management plan. The patient is also recommended to start a daily [id number] antihistamine, which may assist with allergic symptoms. Diagnostic testing for flu, COVID-19, and RSV will be conducted and I will inform the patient about the results once available, ensuring appropriate adjustments based on findings. Patient was informed and verbally consented to the use of an ambient scribe for clinic note documentation during this visit (2) Acute asthma exacerbation: Code(s): J45.901 - Unspecified asthma with (acute) exacerbation Qualifiers: Asthma severity: mild Asthma persistence: intermittent Qualified Code(s): J45.21 - Mild intermittent asthma with (acute) exacerbation Plan: as above Orders: Orders SARS-CoV2/FLU/RSV Today R09.89 - Other specified symptoms and signs involving the circulatory and respiratory systems XR chest 2V Today R05.9 - Cough, unspecified Medications: New fluticasone propionate 50 mcg/actuation administer into each nostril 1 spray intranasal Q12H 16 grams 0RF benzonatate 200 mg PO BEDTIME PRN 10 caps 0RF cough Coding Level of Care Code Est Pt Level 4 (36208) Diagnoses Lower respiratory infection (e.g., bronchitis, pneumonia, pneumonitis, pulmonitis) J22 Mild intermittent asthma with acute exacerbation J45.21 Asthma severity: mild Asthma persistence: intermittent
[2025-01-02 11:44] VITALS: BP 170/120; PULSE 104; TEMP 36.8; O2SAT 94; BMI 24.9
== END 2025-01-02 12:25 | disposition home or self-care (01) ==
PROVIDERS: PCP Physician Assistant; Visit Provider Physician Assistant
DX: J22 Unspecified acute lower respiratory infection (principal); J45.21 Mild intermittent asthma with (acute) exacerbation

== ENCOUNTER 2025-01-02 11:37 | Outpatient (REF) | payer MEDICARE, SELFPAY ==
[2025-01-02 14:37] LABS: Influenza A PCR NEGATIVE (Negative); Influenza B PCR NEGATIVE (Negative); Resp Syncy Virus RNA Qual PCR NEGATIVE (Negative); SARS COV2 PCR INHOUSE NEGATIVE (Negative)
== END 2025-01-02 11:38 | disposition home or self-care (01) ==
LOC: HO.LAB 11:37
PROVIDERS: Physician Assistant; PCP Physician Assistant
DX: Z13.89 Encounter for screening for other disorder (principal)
CPT/HCPCS: 0241U

== ENCOUNTER 2025-01-02 12:20 | Outpatient (REF) | payer MEDICARE, SELFPAY ==
--- NOTE | ~2025-01-02 | XR_ITS ---
EXAMINATION: XR CHEST 2 VIEWS HISTORY: R05.9 - Cough, unspecified COMPARISON: There are no prior studies for comparison. FINDINGS: PA and lateral views of the chest are submitted. There is a calcified granuloma in the left upper lobe. The lungs are otherwise clear. There is no pleural effusion, pneumothorax, or pulmonary vascular congestion. The heart is normal in size. The bones are intact. XR/XR chest 2V IMPRESSION: No focal airspace opacity is identified. Electronically signed by: Joe Reddy MD 01/02/2025 12:48 PM EDT
== END 2025-01-02 12:21 | disposition home or self-care (01) ==
LOC: HO.HMGCX 12:20
PROVIDERS: PCP Physician Assistant; Visit Provider Physician Assistant
DX: R05.9 Cough, unspecified (principal); J22 Unspecified acute lower respiratory infection; J45.21 Mild intermittent asthma with (acute) exacerbation
CPT/HCPCS: 0241U; 71046; 99212

== ENCOUNTER → 2025-01-02 12:23 | Outpatient (BNV) | payer MEDICARE, MEDICAID, SELFPAY | PROVIDERS: PCP Physician Assistant; Visit Provider Radiology Diagnostic Radiology | DX: R05.9 Cough, unspecified (principal) | CPT/HCPCS: 71046 ==

== ENCOUNTER 2025-02-13 09:17 | Outpatient (AMB) | payer MEDICARE, MEDICAID, SELFPAY ==
[2025-02-13 09:22] VITALS: BP 142/102; PULSE 82; TEMP 36.2; O2SAT 98; BMI 24.3
--- NOTE | 2025-02-13 09:22 | MHC.PC.OV ---
Vital Signs 02/13/25 09:22 Height 5 ft 8 in Weight 160 lb 2 oz BMI 24.3 BP 142/102 H Blood Pressure Location Lt brachial Position Sitting Pulse 82 Pulse Source Pulse Oximeter Temp 97.1 F Temp Source Temporal Artery Scan Pulse Oximetry (%) 98 Oxygen Delivery Method Room Air Intake Visit Reasons: f/u pain management. 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: No Accompanied by: Self / Same As Patient Allergies tramadol [From Ultram] Allergy (Severe, Verified 02/13/25 09:40) Hives naloxone [From Suboxone] Allergy (Mild, Verified 02/13/25 09:40) Hives aspirin Allergy (Unknown, Verified 02/13/25 09:40) Unknown ibuprofen [Advil] Allergy (Unknown, Verified 02/13/25 09:40) Unknown morphine Allergy (Unknown, Verified 02/13/25 09:40) Unknown Sulfa (Sulfonamide Antibiotics) Allergy (Unknown, Verified 02/13/25 09:40) Unknown carisoprodol [From Soma] Adverse Reaction (Severe, Verified 02/13/25 09:40) fever, rash buprenorphine Adverse Reaction (Intermediate, Verified 02/13/25 09:40) hives NSAIDS Allergy (Unknown, Uncoded 02/13/25 09:40) Stomach Upset Tobacco use date assessed: 11/13/24 Dental Screening Dental Screen Date: 11/13/24 HPI f/u pain management. HPI Details Patient is a 54 year-old male here today for a follow-up visit..? Patient has a past medical history significant asthma, generalized anxiety disorder, former smoker, opiate dependence and lumbar degenerative disc disease. Concern--> he reports an episode of throat swelling and difficulty breathing after ingesting some cm at a local restaurant. He is concerned about these symptoms and thus is interested in EpiPen for possible anaphylactic reactions. . Lumbar degenerative disc disease: The chronic back pain has been a longstanding issue, requiring adjustments to the current medication regimen, which includes the use of cyclobenzaprine with limited relief. An associated lumbar incision swelling exacerbates discomfort, particularly during physical exertion like interacting with grandchildren, suggesting activity-related flares. The patient's history of excessive NSAID use, primarily naproxen, for an extended post-operative period has resulted in gastric complications, manifested as gastroparesis. ? Did have emergent lumbar surgery in 2013, has gotten lumbar spine injections without any significant relief of his chronic lumbar spine pain, he has not interested in spinal stimulation. Has no further follow-up with [place] pain management ?Continues with the use of long-term opiate pain medication.? Has had no signs of abuse and most recent urine drug screen acceptable. He does have multilevel disc disease in his lumbar spine and continues to have worsening pain with radiculopathy down lower extremities. Currently continues on oxycodone 10 mg t.i.d. he does report his pain is fairly well managed and is able to continue his activities of daily living. Does have a hobby of [employer]ing making [employer]. Urine drug screens have been appropriate, no overt signs does use or abuse. AT THIS TIME HE HAS NOT INTERESTED IN ANY SURGERIES OR INJECTIONS -WILL CONTINUE TO MANAGE WITH OPIATE PAIN MEDICATION AND ARAVIND IS WILLING TO SLOWLY WEAN HIS NEXT DOSE OF OXYCODONE. WILL RESTART HIS LOW OPIATE WEAN IN DECEMBER OF 2024. WILL REDUCE HIS MONTHLY PILL COUNT #64 TABLETS , AND REDUCE BY 2 TABLETS EVERY MONTH .. Generalized anxiety disorder: Continues with the use of fluoxetine 10 mg which has been effective on reducing his anxiety. [facility] Medical History Chronic right hip pain Disc degeneration, lumbar Sacroiliitis, not elsewhere classified Lumbar spondylosis Failed back syndrome, lumbar Medication reaction Carpal tunnel syndrome, bilateral Failed back syndrome GERD (gastroesophageal reflux disease) Asthma Surgical History History of hemilaminectomy Family History Father Cirrhosis of liver Mother Stomach cancer Brother Osteoporosis Son Bipolar 1 disorder Mental health disorder Social History Housing: House Alcohol intake: never Patient Tobacco Use Status: Former Tobacco user Tobacco use type: Cigarette e-Cigarette/Vaping Use: Never Used Second Hand Smoke Exposure: Yes service: No Current occupational status: disabled Current occupation: patient is currently disabled since 2013 from several different injury Cognitive needs: Yes (Cane) Hearing needs: No Vision needs: No Questionnaire Thrive Questionnaire Date Thrive assessed: 11/13/24 AUDIT C Alcohol Use Questionnaire (AUDIT-C) 3. How often do you have six or more drinks on one occasion?: Never Total Score: 0 DEVORA-7 AMB Questionnaire DEVORA-7 Date DEVORA - 7 assessed: 11/13/24 Source: Developed by Drs. Joe Cordero, Zuleika Kingston, Andrew Dorsey and colleagues, with an educational omer from [employer]. Review of Systems Const Denies headache(s) Eyes Denies loss of vision ENT Denies vertigo, Denies dizziness, Denies headache(s) and Denies sore throat Card Denies chest pain, Denies leg edema and Denies lightheadedness Resp Denies cough, Denies hemoptysis and Denies wheezing GI Denies abdominal pain, Denies melena, Denies constipation, Denies diarrhea and Denies vomiting Denies dysuria, Denies urinary frequency and Denies urinary urgency Musc Denies arthralgias, Denies joint swelling, Denies numbness and Denies tingling Neuro Denies Abnormal speech present, Denies behavioral changes, Denies vertigo, Denies dizziness, Denies headache(s), Denies loss of vision, Denies memory loss, Denies numbness and Denies tingling Psych Denies anxiety, Denies behavioral changes, Denies depression, Denies memory loss and Denies panic attacks Tomasz/Lymph Denies easy bleeding and Denies easy bruising Aller/Immun Denies wheezing Physical exam (Primary Care) Vital Signs: Last Vital Signs Temp 97.1 F 02/13/25 09:22 Pulse 82 02/13/25 09:22 BP 142/102 H 02/13/25 09:22 Pulse Ox 98 02/13/25 09:22 Oxygen Delivery Method Room Air 02/13/25 09:22 BMI result Body Mass Index 24.3 Tobacco/Smoking Status: Tobacco use Status Tobacco use date assessed 11/13/24 02/13/25 09:23 Patient Tobacco Use Status Former Tobacco user 02/13/25 09:23 Tobacco use type Cigarette 02/13/25 09:23 e-Cigarette/Vaping Use Never Used 02/13/25 09:23 Thrive Assessment: Date of Thrive Assessment Date Thrive assessed 11/13/24 02/13/25 09:23 Const General: healthy appearing, no acute distress, alert and awake Nutritional Appearance: well nourished Orientation/consciousness: oriented to person, oriented to place and oriented to time HENMT Ears: TM's normal bilaterally General nose exam: Normal nasal mucous membranes and turbinates present Eyes Conjunctivae: conjunctivae normal Sclerae: sclerae normal Pupils: Equal, round and reactive pupils present Neck Neck: Yes no lymphadenopathy and Yes no JVD Thyroid: Thyroid normal Carotids: no bruits Resp Effort & Inspection: normal respiratory effort and not tachypneic Auscultation: no crackles, no rales, no rhonchi and no wheezes Cardio Rate: regular rate Rhythm: regular rhythm Heart sounds: no murmurs and normal S1 and S2 GI Palpation (GI): Soft to palpation, nontender, no hepatomegaly and no splenomegaly Auscultation: normal bowel sounds Back/Spine/Pelvis Other: LUMBAR SPINE AND WITH LIMITED RANGE OF MOTION DUE TO PAIN AND STIFFNESS, AMBULATING WITH AN ANTALGIC GAIT IN A CANE FOR ASSISTANCE. Skin General skin exam: no rashes or lesions noted and dry skin Neuro General: oriented to person, oriented to place and oriented to time Cranial nerves: Yes Equal, round and reactive pupils present Speech: No Abnormal speech present Gait exam (Neuro): Normal gait present Motor exam (neuro): no tremor noted Extrem Right upper extremity: full ROM Left upper extremity: full ROM Right lower extremity: full ROM; no edema Left lower extremity: full ROM; no edema Psych Mental Status: mental status grossly normal Speech and movement: Normal speech and movement present Affect: normal affect Attitude: cooperative Thought process: Normal thought process present Coding Level of Care Code Est Pt Level 4 (03801) Diagnoses Failed back syndrome, lumbar M96.1 Uncomplicated opioid dependence F11.20 Substance use status: uncomplicated Anaphylaxis, subsequent encounter T78.2XXD Encounter type: subsequent encounter Assessment & Plan Assessment & Plan (1) Failed back syndrome, lumbar: Code(s): M96.1 - Postlaminectomy syndrome, not elsewhere classified Category: Medical Plan: Patient continues to have pretty significant lower back pain, he does report having lower extremity weakness in a couple of falls. He is concerned about worsening disc issue in his back. We considering an MRI of his lumbar spine again. He reports he continues to have intermittent inflammation in his lower back depending on how much physical activity he has done. He is interested in trying a different muscle relaxer thus will transitioned from cyclobenzaprine to tizanidine As far as his pain medication regime we will continues low wean of his dose of oxycodone. As of December of 2024 will continue to reduce by 2 tablets monthly. (2) Opiate dependence: Code(s): F11.20 - Opioid dependence, uncomplicated Category: Medical Qualifiers: Substance use status: uncomplicated Qualified Code(s): F11.20 - Opioid dependence, uncomplicated Plan: As above patient has dependency to opiates. Will continue to slowly wean his dose. Currently getting 64 tablets of oxycodone 10 mg for a month supply. Will continue reducing dose by 2 tablets monthly (3) Anaphylactic reaction: Code(s): T78.2XXA - Anaphylactic shock, unspecified, initial encounter Category: Medical Qualifiers: Encounter type: subsequent encounter Qualified Code(s): T78.2XXD - Anaphylactic shock, unspecified, subsequent encounter Plan: Patient an episode of what seemed to be angioedema related to ingestion of Sinemet. Will supply patient with an EpiPen to use in case of emergency angioedema Orders: Orders Drug Screen Urine Today F11.20 - Opioid dependence, uncomplicated Comprehensive [place]. Panel Fast Today Z13.1 - Encounter for screening for diabetes mellitus Complete Blood Count no Diff Today Z13.1 - Encounter for screening for diabetes mellitus Medications: New tizanidine 4 mg PO BID PRN 60 tabs 1RF muscle spasticity 30 days M51.36 - Other intervertebral disc degeneration, lumbar region epinephrine (EpiPen 2-Kevin) for 2 doses 0.3 mg (0.3 mL) IM ONCE PRN 2 ea 0RF anaphylaxis 30 days T78.2XXA - Anaphylactic shock, unspecified, initial encounter Discontinued benzonatate Discontinued Reason: Doctor's Order 200 mg PO BEDTIME PRN 10 caps 0RF cough On Hold cyclobenzaprine Hold Comment: Doctor's Order 10 mg PO Q8H 30 days PRN 90 tabs 6RF muscle spasm M47.816 - Spondylosis without myelopathy or radiculopathy, lumbar region, M51.36 - Other intervertebral disc degeneration, lumbar region, M96.1 - Postlaminectomy syndrome, not elsewhere classified
== END 2025-02-13 10:02 | disposition home or self-care (01) ==
LOC: HO.HMCH 09:18
PROVIDERS: PCP Physician Assistant; Visit Provider Physician Assistant
DX: M96.1 Postlaminectomy syndrome, not elsewhere classified (principal); F11.20 Opioid dependence, uncomplicated; T78.2XXD Anaphylactic shock, unspecified, subsequent encounter

== ENCOUNTER → 2025-02-13 09:17 | Outpatient (BNVA) | payer MEDICARE, SELFPAY | PROVIDERS: PCP Physician Assistant; Visit Provider Physician Assistant | DX: M96.1 Postlaminectomy syndrome, not elsewhere classified (principal); F11.20 Opioid dependence, uncomplicated; T78.2XXD Anaphylactic shock, unspecified, subsequent encounter | CPT/HCPCS: 99212 ==

== ENCOUNTER 2025-03-27 08:04 | Outpatient (REF) | payer MEDICARE, MEDICAID, SELFPAY ==
[2025-03-27 10:25] LABS: Amphetamine Screen Urine Not Detected (Not Detect); Barbiturates, Urine Not Detected (Not Detect); Benzodiazepines Screen Urine Not Detected (Not Detect); Buprenorphine Scr Not Detected (Not Detect); Cannabinoid Screen Urine Not Detected (Not Detect); Cocaine Screen Urine Not Detected (Not Detect); Fentanyl, urine Not Detected (Not Detect); Methadone Screen, Urine Not Detected (Not Detect); Opiate Screen Urine POSITIVE (Not Detect); Oxycodone Screen Urine Positive (Not Detect); Phencyclidine Screen Urine Not Detected (Not Detect)
[2025-03-27 10:47] LABS: Hematocrit 41.3 % (42.0-52.0); Hemoglobin 14.3 g/dl (14.0-18.0); Mean Corpuscular HGB Conc 34.6 g/dl (31.0-36.0); Mean Corpuscular Hemoglobin 32.9 pg (27.0-33.0); Mean Corpuscular Volume 95.2 fL (80.0-98.0); Mean Platelet Volume 9.5 fL (9.4-12.4); Platelet Count 260 X10*3/uL (160-400); Red Blood Count 4.34 X10*6/uL (4.60-5.80); Red Cell Distribution Width 12.9 % (11.0-16.0)
[2025-03-27 11:05] LABS: Alanine Aminotransferase 21 U/L (0-40); Albumin Level 4.3 g/dL (3.5-5.0); Alkaline Phosphatase 91 U/L (39-117); Anion Gap 10 (12-20); Aspartate Amino Transferase 30 U/L (5-37); Bilirubin Total 0.8 mg/dL (0.0-1.0); Blood Urea Nitrogen 10 mg/dL (9-16); Calcium 9.3 mg/dL (8.4-10.2); Carbon Dioxide 27 mmol/L (22-29); Chloride 105 mmol/L (96-108); Estimated Glomerular Filt Rate > 60; Glucose Fasting 100 mg/dL (60-99); Potassium 3.3 mmol/L (3.3-5.1); Sodium 139 mmol/L (135-145); Total Protein 7.1 g/dL (6.5-8.0)
== END 2025-03-27 08:05 | disposition home or self-care (01) ==
LOC: HO.HMGCLDS 08:04
PROVIDERS: PCP Physician Assistant; Visit Provider Physician Assistant
DX: Z13.1 Encounter for screening for diabetes mellitus (principal); F11.20 Opioid dependence, uncomplicated
CPT/HCPCS: 80053; 80307; 85027

== ENCOUNTER 2025-05-20 08:35 | Outpatient (AMB) | payer MEDICARE, SELFPAY ==
--- NOTE | 2025-05-20 08:38 | MHC.PC.OV ---
Vital Signs 05/20/25 08:40 Height 5 ft 8 in Weight 162 lb 2 oz BMI 24.6 BP 120/70 Blood Pressure Location Lt brachial Position Sitting Pulse 81 Pulse Source Pulse Oximeter Temp 97.3 F Temp Source Temporal Artery Scan Pulse Oximetry (%) 95 Oxygen Delivery Method Room Air Intake Visit Reasons: F/U Pain Management Intake Note: Patient is here to follow up on Pain management . [facility] Partner Required: No Pet Care Worker: Not Required per policy Accompanied by: Self / Same As Patient Allergies tramadol (From Ultram) Allergy (Severe, Verified 05/20/25 08:50) Hives naloxone (From Suboxone) Allergy (Mild, Verified 05/20/25 08:50) Hives aspirin Allergy (Unknown, Verified 05/20/25 08:50) Unknown ibuprofen (Advil) Allergy (Unknown, Verified 05/20/25 08:50) Unknown morphine Allergy (Unknown, Verified 05/20/25 08:50) Unknown Sulfa (Sulfonamide Antibiotics) Allergy (Unknown, Verified 05/20/25 08:50) Unknown carisoprodol (From Soma) Adverse Reaction (Severe, Verified 05/20/25 08:50) fever, rash buprenorphine Adverse Reaction (Intermediate, Verified 05/20/25 08:50) hives NSAIDS Allergy (Unknown, Uncoded 05/20/25 08:50) Stomach Upset Medication List - Last Reconciled 05/20/25 by Jerome Meneses PA-C acetaminophen ER (Tylenol Arthritis Pain) 650 mg PO Q12H 30 days albuterol sulfate 90 mcg/actuation (Ventolin HFA) 1 puff inhalation Q4H 30 days budesonide (Pulmicort) 0.25 mg (2 mL) inhalation DAILY PRN 15 days cyclobenzaprine 10 mg PO Q8H PRN 30 days Held on 02/13/25. Instructions: Doctor's Order epinephrine (EpiPen 2-Kevin) 0.3 mg (0.3 mL) IM ONCE PRN 30 days fluoxetine 20 mg PO DAILY 90 days fluticasone propionate 50 mcg/actuation 1 spray intranasal Q12H montelukast 10 mg PO DAILY 90 days oxycodone 10 mg PO TID PRN 28 days pantoprazole 40 mg PO DAILY 90 days tadalafil 20 mg PO DAILY 5 days tizanidine 4 mg PO BID PRN 30 days Tobacco use date assessed: 05/20/25 Dental Screening Dental Screen Date: 11/13/24 HPI F/U Pain Management HPI Details Patient is a 54 year-old male here today for a follow-up visit..? Patient has a past medical history significant asthma, generalized anxiety disorder, former smoker, opiate dependence and lumbar degenerative disc disease. Concern--> asthma: Patient has a history of asthma. The patient reports respiratory issues related to smoking, with wheezing exacerbated by heat. He lacks a nebulizer due to financial constraints. . Lumbar degenerative disc disease: The chronic back pain has been a longstanding issue, requiring adjustments to the current medication regimen, which includes the use of cyclobenzaprine with limited relief. An associated lumbar incision swelling exacerbates discomfort, particularly during physical exertion like interacting with grandchildren, suggesting activity-related flares. The patient's history of excessive NSAID use, primarily naproxen, for an extended post-operative period has resulted in gastric complications, manifested as gastroparesis. ? Did have emergent lumbar surgery in 2013, has gotten lumbar spine injections without any significant relief of his chronic lumbar spine pain, he has not interested in spinal stimulation. Has no further follow-up with [facility] ?Continues with the use of long-term opiate pain medication.? Has had no signs of abuse and most recent urine drug screen acceptable. He does have multilevel disc disease in his lumbar spine and continues to have worsening pain with radiculopathy down lower extremities. Currently continues on oxycodone 10 mg t.i.d. he does report his pain is fairly well managed and is able to continue his activities of daily living. Does have a hobby of woodworking making [email or web address]. Urine drug screens have been appropriate, no overt signs does use or abuse. AT THIS TIME HE HAS NOT INTERESTED IN ANY SURGERIES OR INJECTIONS -WILL CONTINUE TO MANAGE WITH OPIATE PAIN MEDICATION AND ARAVIND IS WILLING TO SLOWLY WEAN HIS NEXT DOSE OF OXYCODONE. WILL CONTINUE TO REDUCE HIS MONTHLY MME. WE CONTINUE TO REDUCE HIS PILL COUNT MONTHLY BY 2 TABLETS .. Generalized anxiety disorder: Continues with the use of fluoxetine 10 mg which has been effective on reducing his anxiety. [facility] Medical History Chronic right hip pain Disc degeneration, lumbar Sacroiliitis, not elsewhere classified Lumbar spondylosis Failed back syndrome, lumbar Medication reaction Carpal tunnel syndrome, bilateral Failed back syndrome GERD (gastroesophageal reflux disease) Asthma Surgical History History of hemilaminectomy Family History Father Cirrhosis of liver Mother Stomach cancer Brother Osteoporosis Son Bipolar 1 disorder Mental health disorder Social History Housing: House Alcohol intake: never Patient Tobacco Use Status: Former Tobacco user Tobacco use type: Cigarette e-Cigarette/Vaping Use: Never Used Second Hand Smoke Exposure: Yes service: No Current occupational status: disabled Current occupation: patient is currently disabled since 2013 from several different injury Cognitive needs: Yes (Cane) Hearing needs: No Vision needs: No Questionnaire PHQ-9 Over the last 2 weeks, how often have you been bothered by any of the following problems? 1. Little interest or pleasure in doing things: not at all 2. Feeling down, depressed, or hopeless: not at all 3. Trouble falling or staying asleep, or sleeping too much: more than half the days 4. Feeling tired or having little energy: more than half the days 5. Poor appetite or overeating: more than half the days 6. Feeling bad about yourself - or that you are a failure or have let yourself or your family down: not at all 7. Trouble concentrating on things, such as reading the newspaper or watching television: not at all 8. Moving or speaking so slowly that other people could have noticed. Or the opposite - being so fidgety or restless that you have been moving around a lot more than usual: not at all 9. Thoughts that you would be better off or of hurting yourself in some way: not at all Total score: 6 Depression Screening Interpretation: Positive Depression Screening Follow-up: Existing condition and Declines treatment Depression Screening Done: Yes 87772 - PHQ-9 Billing: Yes Source: Developed by Drs. Joe Cordero, Zuleika Kingston, Andrew Dorsey and colleagues, with an educational omer from [employer]. Thrive Questionnaire Date Thrive assessed: 05/20/25 I am a: Patient What is your living situation today?: I have a steady place to live Within the past 12 months, did the food you bought not last and you didn't have the money to get more?: I choose not to answer this question Within the past 12 months, did you worry whether your food would run out before you got money to buy more?: Never true Do you have trouble paying for medicines?: No Do you have trouble getting transportation to medical appointments?: No Do you have trouble paying your heating and electricity bill?: No Do you have trouble taking care of your child, family member or friend?: No Do you have trouble with day-to-day activities such as bathing, preparing meals, shopping, managing finances, etc.?: No Are you currently unemployed and looking for a job?: No Are you interested in more education?: No Please select the resources that you would like help with: None Currently or been in a relationship where the following occur: No concerns reported THRIVE Score: 0 AUDIT C Alcohol Use Questionnaire (AUDIT-C) 1. How often do you have a drink containing alcohol?: Never Total Score: 0 DEVORA-7 AMB Questionnaire DEVORA-7 Date DEVORA - 7 assessed: 05/20/25 Feeling nervous, anxious, or on edge: 1 = Several days Not being able to stop or control worryin = Not at all Worrying too much about different things: 0 = Not at all Trouble relaxin = Not at all Being so restless that it is hard to sit still: 1 = Several days Becoming easily annoyed or irritable: 0 = Not at all Feeling afraid as if something awful might happen: 0 = Not at all Total DEVORA-7 score (0-4 normal; 5-9 mild; 10-14 moderate; 15-21 severe): 2 Source: Developed by Drs. Joe Cordero, Zuleika Kingston, Andrew Dorsey and colleagues, with an educational omer from [employer]. DEVORA-7 Assessment Billing DEVORA-7 Assessment Tool: DEVORA-7 Assessment 21393 Review of Systems Const Denies headache(s) Eyes Denies loss of vision ENT Denies vertigo, Denies dizziness, Denies headache(s) and Denies sore throat Card Denies chest pain, Denies leg edema and Denies lightheadedness Resp Denies cough, Denies hemoptysis and Denies wheezing GI Denies abdominal pain, Denies melena, Denies constipation, Denies diarrhea and Denies vomiting Denies dysuria, Denies urinary frequency and Denies urinary urgency Musc Denies arthralgias, Denies joint swelling, Denies numbness and Denies tingling Neuro Denies Abnormal speech present, Denies behavioral changes, Denies vertigo, Denies dizziness, Denies headache(s), Denies loss of vision, Denies memory loss, Denies numbness and Denies tingling Psych Denies anxiety, Denies behavioral changes, Denies depression, Denies memory loss and Denies panic attacks Tomasz/Lymph Denies easy bleeding and Denies easy bruising Aller/Immun Denies wheezing Physical exam (Primary Care) Vital Signs: Last Vital Signs Temp 97.3 F 05/20/25 08:40 Pulse 81 05/20/25 08:40 BP 120/70 05/20/25 08:40 Pulse Ox 95 05/20/25 08:40 Oxygen Delivery Method Room Air 05/20/25 08:40 BMI result Body Mass Index 24.6 Tobacco/Smoking Status: Tobacco use Status Tobacco use date assessed 05/20/25 05/20/25 08:44 Patient Tobacco Use Status Former Tobacco user 05/20/25 08:44 Tobacco use type Cigarette 05/20/25 08:44 e-Cigarette/Vaping Use Never Used 05/20/25 08:44 PHQ-9: PHQ-9 Score PHQ-9: Total score 6 05/20/25 08:44 Depression Screening Interpretation: Positive Depression Screening Follow-up: Existing condition and Declines treatment Thrive Assessment: Date of Thrive Assessment Date Thrive assessed 05/20/25 05/20/25 08:44 Currently or been in a relationship where the following occur: No concerns reported Const General: healthy appearing, no acute distress, alert and awake Nutritional Appearance: well nourished Orientation/consciousness: oriented to person, oriented to place and oriented to time HENMT Ears: TM's normal bilaterally General nose exam: Normal nasal mucous membranes and turbinates present Eyes Conjunctivae: conjunctivae normal Sclerae: sclerae normal Pupils: Equal, round and reactive pupils present Neck Neck: Yes no lymphadenopathy and Yes no JVD Thyroid: Thyroid normal Carotids: no bruits Resp Effort & Inspection: normal respiratory effort and not tachypneic Auscultation: no crackles, no rales, no rhonchi and no wheezes Cardio Rate: regular rate Rhythm: regular rhythm Heart sounds: no murmurs and normal S1 and S2 GI Palpation (GI): Soft to palpation, nontender, no hepatomegaly and no splenomegaly Auscultation: normal bowel sounds Back/Spine/Pelvis Other: CONTINUES TO AMBULATE WITH A NONANTALGIC GAIT WITH A CANE FOR AMBULATION ASSISTANCE Skin General skin exam: no rashes or lesions noted and dry skin Neuro General: oriented to person, oriented to place and oriented to time Cranial nerves: Yes Equal, round and reactive pupils present Speech: No Abnormal speech present Gait exam (Neuro): Normal gait present Motor exam (neuro): no tremor noted Extrem Right upper extremity: full ROM Left upper extremity: full ROM Right lower extremity: full ROM; no edema Left lower extremity: full ROM; no edema Psych Mental Status: mental status grossly normal Speech and movement: Normal speech and movement present Affect: normal affect Attitude: cooperative Thought process: Normal thought process present Coding Level of Care Code Est Pt Level 4 (95541) Diagnoses Failed back syndrome, lumbar M96.1 Uncomplicated opioid dependence F11.20 Substance use status: uncomplicated Mild intermittent asthma without complication J45.20 Asthma severity: mild Asthma persistence: intermittent Asthma complication type: uncomplicated Additional Codes PHQ-9 - 81293 - PHQ-9 Billing: Yes ([id number]) DEVORA-7 Assessment Billing - DEVORA-7 Assessment Tool: DEVORA-7 Assessment 07968 ([id number]) Assessment & Plan Assessment & Plan (1) Failed back syndrome, lumbar: Code(s): M96.1 - Postlaminectomy syndrome, not elsewhere classified Category: Medical Plan: Patient continues to have pretty significant lower back pain, he does report having lower extremity weakness in a couple of falls. He is concerned about worsening disc issue in his back. . He reports he continues to have intermittent inflammation in his lower back depending on how much physical activity he has done. WE HAVE SWITCHED HIS MUSCLE RELAXER FROM CYCLOBENZAPRINE TO TIZANIDINE WHICH HAS BEEN WORKING BETTER. As far as his pain medication regime we will continues slow wean of his dose of oxycodone. (2) Opiate dependence: Code(s): F11.20 - Opioid dependence, uncomplicated Category: Medical Qualifiers: Substance use status: uncomplicated Qualified Code(s): F11.20 - Opioid dependence, uncomplicated Plan: As above patient has dependency to opiates. Will continue to slowly wean his dose. The patient is on a slow taper of oxycodone, with a request to switch from 10 mg to 5 mg tablets to facilitate easier dosing without cutting pills. Of note this is a lower MME- 22. The plan is to prescribe 5 mg tablets, three times a day, for a total of 84 tablets for a 28-day supply. (3) Asthma: Code(s): J45.909 - Unspecified asthma, uncomplicated Category: Medical Qualifiers: Asthma severity: mild Asthma persistence: intermittent Asthma complication type: uncomplicated Qualified Code(s): J45.20 - Mild intermittent asthma, uncomplicated Plan: The patient reports wheezing exacerbated by heat and smoking, with no current nebulizer due to financial constraints. A prescription for a nebulizer was discussed as a potential aid during hot weather exacerbations. Medications: New oxycodone Partial Fill upon patient request. 5 mg PO TID PRN 84 tabs 0RF pain 28 days M54.16 - Radiculopathy, lumbar region nebulizers (AeroEclipse II Nebulizer) As directed 1 ea 0RF J45.20 - Mild intermittent asthma, uncomplicated albuterol sulfate 2.5 mg (3 mL) inhalation Q6H 180 mL 1RF 15 days J45.20 - Mild intermittent asthma, uncomplicated Refilled tadalafil 20 mg PO DAILY 5 tabs 1RF 5 days N52.9 - Male erectile dysfunction, unspecified Discontinued oxycodone Partial Fill upon patient request. Discontinued Reason: Doctor's Order 10 mg PO TID 28 days PRN 58 tabs 0RF pain F11.20 - Opioid dependence, uncomplicated
[2025-05-20 08:40] VITALS: BP 120/70; PULSE 81; TEMP 36.3; O2SAT 95; BMI 24.6
== END 2025-05-20 09:15 | disposition home or self-care (01) ==
LOC: HO.HMCH 08:36
PROVIDERS: PCP Physician Assistant; Visit Provider Physician Assistant
DX: M96.1 Postlaminectomy syndrome, not elsewhere classified (principal); F11.20 Opioid dependence, uncomplicated; J45.20 Mild intermittent asthma, uncomplicated

== ENCOUNTER → 2025-05-20 08:35 | Outpatient (BNVA) | payer MEDICARE, SELFPAY | PROVIDERS: PCP Physician Assistant; Visit Provider Physician Assistant | DX: M96.1 Postlaminectomy syndrome, not elsewhere classified (principal); F11.20 Opioid dependence, uncomplicated; J45.20 Mild intermittent asthma, uncomplicated | CPT/HCPCS: 96127; 99212 ==

== ENCOUNTER 2025-06-24 08:04 | Outpatient (AMB) | payer MEDICARE, SELFPAY ==
[2025-06-24 08:14] VITALS: BP 122/88; PULSE 80; TEMP 36.8; O2SAT 97; BMI 24.0
--- NOTE | 2025-06-24 08:14 | AM.OFFWIN_ITS ---
Intake Vital Signs 06/24/25 08:14 Height 5 ft 8 in Weight 158 lb BMI 24.0 BP 122/88 Blood Pressure Location Lt brachial Position Sitting Pulse 80 Pulse Source Pulse Oximeter Temp 98.2 F Temp Source Oral Pulse Oximetry (%) 97 Oxygen Delivery Method Room Air Intake Visit Reasons: EP swollen lt eye Intake Note: pt presents with left eye swelling, pain and redness after foreign object lodged and later removed. s/s 4 days Patient Tobacco Use Status: Former Tobacco user Allergies tramadol (From Ultram) Allergy (Severe, Verified 06/24/25 08:17) Hives naloxone (From Suboxone) Allergy (Mild, Verified 06/24/25 08:17) Hives aspirin Allergy (Unknown, Verified 06/24/25 08:17) Unknown ibuprofen (Advil) Allergy (Unknown, Verified 06/24/25 08:17) Unknown morphine Allergy (Unknown, Verified 06/24/25 08:17) Unknown Sulfa (Sulfonamide Antibiotics) Allergy (Unknown, Verified 06/24/25 08:17) Unknown carisoprodol (From Soma) Adverse Reaction (Severe, Verified 06/24/25 08:17) fever, rash buprenorphine Adverse Reaction (Intermediate, Verified 06/24/25 08:17) hives NSAIDS Allergy (Unknown, Uncoded 05/20/25 08:50) Stomach Upset HPI HPI Comments History of Present Illness Details History of Present Illness - The patient is a 55-year-old male pres enting with symptoms of eye discomfort and suspected corneal abrasion. - The patient reported an incident 4 day s ago where a foreign body, possibly a piece of plastic, entered his left eye, leading to irritation and subsequent bleeding in the eye. - He attempted to rinse the eye multiple times with saline solution and noted swelling and a sensation of a foreign body in the left corner of the eye. - The patient experienced a headache beh ind the eye but denied any changes in vision or pain in the eye. - Does not wear contacts. Physical Exam General: Cooperative, healthy appearing, comfortable, no acute distress and well developed Orientation: Patient oriented x3 Limitations: No limitations Head: Normal to inspection Ears: Hearing grossly normal bilaterally Nose: Normal External nose present Face and sinus: Normal facial exam Eyes: Left eye with injection and slight edema, corneal abrasions noted at 5 o'clock and 12 o'clock positions, injected appearance, no change in vision reported Neck: Normal visual inspection and Yes full ROM Respiratory: Normal respiratory effort and able to speak in complete sentences. Skin: No rashes or lesions noted Neuro: Patient oriented x3 Extremities: Normal to inspection [facility] Medical History Chronic right hip pain Disc degeneration, lumbar Sacroiliitis, not elsewhere classified Lumbar spondylosis Failed back syndrome, lumbar Medication reaction Carpal tunnel syndrome, bilateral Failed back syndrome GERD (gastroesophageal reflux disease) Asthma Surgical History History of hemilaminectomy Family History Father Cirrhosis of liver Mother Stomach cancer Brother Osteoporosis Son Bipolar 1 disorder Mental health disorder Social History Housing: House Alcohol intake: never Patient Tobacco Use Status: Former Tobacco user Tobacco use type: Cigarette e-Cigarette/Vaping Use: Never Used Second Hand Smoke Exposure: Yes service: No Current occupational status: disabled Current occupation: patient is currently disabled since 2013 from several different injury Cognitive needs: Yes (Cane) Hearing needs: No Vision needs: No Review of Systems Const All systems reviewed & are unremarkable except as noted in HPI and below Physical Exam Vital Signs: Last Vital Signs Temp 98.2 F 06/24/25 08:14 Pulse 80 06/24/25 08:14 BP 122/88 06/24/25 08:14 Pulse Ox 97 06/24/25 08:14 Oxygen Delivery Method Room Air 06/24/25 08:14 BMI result Body Mass Index 24.0 Office Procedures Fluorescein eye exam Details: Applied 2 gtts of tetracaine to left eye, applied dye and under fluoroscein light observed 2 circular corneal abrasions at 5 o'clock and 12 o'clock positions. Assessment & Plan Assessment & Plan (1) Abrasion of left cornea: Code(s): S05.02XA - Injury of conjunctiva and corneal abrasion without foreign body, left eye, initial encounter Qualifiers: Encounter type: initial encounter Qualified Code(s): S05.02XA - Injury of conjunctiva and corneal abrasion without foreign body, left eye, initial encounter Plan: Patient was informed and verbally consented to the use of an ambient scribe for clinic note documentation during this visit. 1. Corneal Abrasions of the left eye - Plan includes the application of erythromycin ointment four times a day while awake, for 7 days. - Patient advised to monitor for worsening symptoms and to contact the provider if redness extends to the skin around the eye. - Advised to observe for any increase in redness or swelling around the eye, will call in Keflex if it worsens after a few days of treatment with erythromycin ointment. Orders: Orders AMB Fluorescein eye exam Today S05.02XA - Injury of conjunctiva and corneal abrasion without foreign body, left eye, initial encounter Medications: New erythromycin Apply to left eye 4 times a day while awake 0.5 inches ophthalmic (eye) QID 3.5 grams 0RF Coding Level of Care Code Est Pt Level 3 (73204) Diagnoses Abrasion of left cornea, initial encounter S05.02XA Encounter type: initial encounter
== END 2025-06-24 08:37 | disposition home or self-care (01) ==
PROVIDERS: PCP Physician Assistant; Visit Provider Physician Assistant
DX: S05.02XA Injury of conjunctiva and corneal abrasion without foreign body, left eye, initial encounter (principal)

== ENCOUNTER → 2025-06-24 08:04 | Outpatient (BNVA) | payer MEDICARE, SELFPAY | PROVIDERS: PCP Physician Assistant; Visit Provider Physician Assistant | DX: S05.02XA Injury of conjunctiva and corneal abrasion without foreign body, left eye, initial encounter (principal); X58.XXXA Exposure to other specified factors, initial encounter; Y93.9 Activity, unspecified; Y92.9 Unspecified place or not applicable; Y99.9 Unspecified external cause status | CPT/HCPCS: 99212 ==

== ENCOUNTER 2025-08-21 09:30 | Outpatient (AMB) | payer MEDICARE, SELFPAY ==
[2025-08-21 09:41] VITALS: BP 130/90; PULSE 68; O2SAT 96; BMI 24.4
--- NOTE | 2025-08-21 09:41 | MHC.PC.OV ---
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 Required: No Accompanied by: Self / Same As Patient Allergies tramadol (From Ultram) Allergy (Severe, Verified 08/21/25 09:58) Hives naloxone (From Suboxone) Allergy (Mild, Verified 08/21/25 09:58) Hives aspirin Allergy (Unknown, Verified 08/21/25 09:58) Unknown ibuprofen (Advil) Allergy (Unknown, Verified 08/21/25 09:58) Unknown morphine Allergy (Unknown, Verified 08/21/25 09:58) Unknown Sulfa (Sulfonamide Antibiotics) Allergy (Unknown, Verified 08/21/25 09:58) Unknown carisoprodol (From Soma) Adverse Reaction (Severe, Verified 08/21/25 09:58) fever, rash buprenorphine Adverse Reaction (Intermediate, Verified 08/21/25 09:58) hives NSAIDS Allergy (Unknown, Uncoded 08/21/25 09:58) Stomach Upset Medication List - Last Reconciled 08/21/25 by Jerome Meneses PA-C acetaminophen ER (Tylenol Arthritis Pain) 650 mg PO Q12H 30 days albuterol sulfate 90 mcg/actuation (Ventolin HFA) 1 puff inhalation Q4H 30 days albuterol sulfate 2.5 mg (3 mL) inhalation Q6H 15 days budesonide (Pulmicort) 0.25 mg (2 mL) inhalation DAILY PRN 15 days ciprofloxacin HCl 0.3% Put 2 drops into affected every 8 hours 7 days cyclobenzaprine 10 mg PO Q8H PRN 30 days Held on 02/13/25. Instructions: Doctor's Order epinephrine (EpiPen 2-Kevin) 0.3 mg (0.3 mL) IM ONCE PRN 30 days erythromycin 0.5 inches ophthalmic (eye) QID fluoxetine 20 mg PO DAILY 90 days fluticasone propionate 50 mcg/actuation 1 spray intranasal Q12H montelukast 10 mg PO DAILY 90 days nebulizers (AeroEclipse II Nebulizer) As directed oxycodone 10 mg PO BID 28 days pantoprazole 40 mg PO DAILY 90 days tadalafil 20 mg PO DAILY 5 days tizanidine 4 mg PO BID PRN 30 days Tobacco use date assessed: 08/21/25 Dental Screening Dental Screen Date: 08/21/25 Did you have a dental visit in the last 12 months?: Yes Did you have a dental problem in the last 6 months where you did not have access to dental care?: No Was dental information given to patient?: Patient has dentist HPI f/u pain management HPI Details Patient is a 54 year-old male here today for a follow-up visit..? Patient has a past medical history significant asthma, generalized anxiety disorder, former smoker, opiate dependence and lumbar degenerative disc disease. . Corneal abrasion: Patient had an incident of corneal abrasion that was treated at urgent care and though the since then he has been having declining in his vision as he feels he is not able to see small print. He is interested in getting evaluation with Ophthalmology. Of note he does report his father was legally blind in his early 60s. .. Polyarthralgia: Patient reports increased joint pain particularly in his hands wrists and elbows. We did discuss his positive WILL in the past. He is not able take any anti-inflammatories due to GI issues. . Lumbar degenerative disc disease: The chronic back pain has been a longstanding issue, requiring adjustments to the current medication regimen, which includes the use of cyclobenzaprine with limited relief. An associated lumbar incision swelling exacerbates discomfort, particularly during physical exertion like interacting with grandchildren, suggesting activity-related flares. The patient's history of excessive NSAID use, primarily naproxen, for an extended post-operative period has resulted in gastric complications, manifested as gastroparesis. ? Did have emergent lumbar surgery in 2013, has gotten lumbar spine injections without any significant relief of his chronic lumbar spine pain, he has not interested in spinal stimulation. Has no further follow-up with [place] pain management ?Continues with the use of long-term opiate pain medication.? Has had no signs of abuse and most recent urine drug screen acceptable. He does have multilevel disc disease in his lumbar spine and continues to have worsening pain with radiculopathy down lower extremities. Currently continues on oxycodone 10 mg BID he does report his pain is fairly well managed and is able to continue his activities of daily living. Does have a hobby of woodworking making [employer]. Urine drug screens have been appropriate, no overt signs does use or abuse. AT THIS TIME HE HAS NOT INTERESTED IN ANY SURGERIES OR INJECTIONS -WILL CONTINUE TO MANAGE WITH OPIATE PAIN MEDICATION AND ARAVIND IS WILLING TO SLOWLY WEAN HIS NEXT DOSE OF OXYCODONE. WILL CONTINUE TO REDUCE HIS MONTHLY MME. WE CONTINUE TO REDUCE HIS PILL COUNT MONTHLY BY 2 TABLETS .. Generalized anxiety disorder: Continues with the use of fluoxetine 10 mg which has been effective on reducing his anxiety. [facility] Medical History Chronic right hip pain Disc degeneration, lumbar Sacroiliitis, not elsewhere classified Lumbar spondylosis Failed back syndrome, lumbar Medication reaction Carpal tunnel syndrome, bilateral Failed back syndrome GERD (gastroesophageal reflux disease) Asthma Surgical History History of hemilaminectomy Family History Father Cirrhosis of liver Mother Stomach cancer Brother Osteoporosis Son Bipolar 1 disorder Mental health disorder Social History Housing: House Alcohol intake: never Patient Tobacco Use Status: Former Tobacco user Tobacco use type: Cigarette e-Cigarette/Vaping Use: Never Used Second Hand Smoke Exposure: Yes service: No Current occupational status: disabled Current occupation: patient is currently disabled since 2013 from several different injury Cognitive needs: Yes (Cane) Hearing needs: No Vision needs: No Questionnaire Thrive Questionnaire Date Thrive assessed: 05/20/25 I am a: Patient What is your living situation today?: I have a steady place to live Within the past 12 months, did the food you bought not last and you didn't have the money to get more?: I choose not to answer this question Within the past 12 months, did you worry whether your food would run out before you got money to buy more?: Never true Do you have trouble paying for medicines?: No Do you have trouble getting transportation to medical appointments?: No Do you have trouble paying your heating and electricity bill?: No Do you have trouble taking care of your child, family member or friend?: No Do you have trouble with day-to-day activities such as bathing, preparing meals, shopping, managing finances, etc.?: No Are you currently unemployed and looking for a job?: No Are you interested in more education?: No Please select the resources that you would like help with: None Currently or been in a relationship where the following occur: No concerns reported THRIVE Score: 0 AUDIT C Alcohol Use Questionnaire (AUDIT-C) 1. How often do you have a drink containing alcohol?: Never 3. How often do you have six or more drinks on one occasion?: Never Total Score: 0 DEVORA-7 AMB Questionnaire DEVORA-7 Date DEVORA - 7 assessed: 05/20/25 Source: Developed by Drs. Joe Cordero, Zuleika Kingston, Andrew Dorsey and colleagues, with an educational omer from [employer]. Review of Systems Const Denies headache(s) Eyes Denies loss of vision ENT Denies vertigo, Denies dizziness, Denies headache(s) and Denies sore throat Card Denies chest pain, Denies leg edema and Denies lightheadedness Resp Denies cough, Denies hemoptysis and Denies wheezing GI Denies abdominal pain, Denies melena, Denies constipation, Denies diarrhea and Denies vomiting Denies dysuria, Denies urinary frequency and Denies urinary urgency Musc Denies arthralgias, Denies joint swelling, Denies numbness and Denies tingling Neuro Denies Abnormal speech present, Denies behavioral changes, Denies vertigo, Denies dizziness, Denies headache(s), Denies loss of vision, Denies memory loss, Denies numbness and Denies tingling Psych Denies anxiety, Denies behavioral changes, Denies depression, Denies memory loss and Denies panic attacks Tomasz/Lymph Denies easy bleeding and Denies easy bruising Aller/Immun Denies wheezing Physical exam (Primary Care) Vital Signs: Last Vital Signs Pulse 68 08/21/25 09:41 BP 130/90 H 08/21/25 09:41 Pulse Ox 96 08/21/25 09:41 Oxygen Delivery Method Room Air 08/21/25 09:41 BMI result Body Mass Index 24.4 Tobacco/Smoking Status: Tobacco use Status Tobacco use date assessed 08/21/25 08/21/25 09:46 Patient Tobacco Use Status Former Tobacco user 08/21/25 09:46 Tobacco use type Cigarette 08/21/25 09:46 e-Cigarette/Vaping Use Never Used 08/21/25 09:46 Thrive Assessment: Date of Thrive Assessment Date Thrive assessed 05/20/25 08/21/25 09:46 Currently or been in a relationship where the following occur: No concerns reported Const General: healthy appearing, no acute distress, alert and awake Nutritional Appearance: well nourished Orientation/consciousness: oriented to person, oriented to place and oriented to time HENMT Ears: TM's normal bilaterally General nose exam: Normal nasal mucous membranes and turbinates present Eyes Conjunctivae: conjunctivae normal Sclerae: sclerae normal Pupils: Equal, round and reactive pupils present Neck Neck: Yes no lymphadenopathy and Yes no JVD Thyroid: Thyroid normal Carotids: no bruits Resp Effort & Inspection: normal respiratory effort and not tachypneic Auscultation: no crackles, no rales, no rhonchi and no wheezes Cardio Rate: regular rate Rhythm: regular rhythm Heart sounds: no murmurs and normal S1 and S2 GI Palpation (GI): Soft to palpation, nontender, no hepatomegaly and no splenomegaly Auscultation: normal bowel sounds Skin General skin exam: no rashes or lesions noted and dry skin Neuro General: oriented to person, oriented to place and oriented to time Cranial nerves: Yes Equal, round and reactive pupils present Speech: No Abnormal speech present Gait exam (Neuro): Normal gait present Motor exam (neuro): no tremor noted Extrem Right upper extremity: full ROM Left upper extremity: full ROM Right lower extremity: full ROM; no edema Left lower extremity: full ROM; no edema Psych Mental Status: mental status grossly normal Speech and movement: Normal speech and movement present Affect: normal affect Attitude: cooperative Thought process: Normal thought process present Coding Level of Care Code Est Pt Level 4 (23277) Diagnoses Failed back syndrome, lumbar M96.1 Uncomplicated opioid dependence F11.20 Substance use status: uncomplicated Mild intermittent asthma without complication J45.20 Asthma complication type: uncomplicated Asthma persistence: intermittent Asthma severity: mild Polyarthralgia M25.50 Abrasion of left cornea, initial encounter S05.02XA Encounter type: initial encounter Assessment & Plan Assessment & Plan (1) Failed back syndrome, lumbar: Code(s): M96.1 - Postlaminectomy syndrome, not elsewhere classified Category: Medical Plan: Patient continues to have pretty significant lower back pain, he does report having lower extremity weakness in a couple of falls. He reports he continues to have intermittent inflammation in his lower back depending on how much physical activity he has done. WE HAVE SWITCHED HIS MUSCLE RELAXER FROM CYCLOBENZAPRINE TO TIZANIDINE WHICH HAS BEEN WORKING BETTER. As far as his pain medication regime we will continues slow wean of his dose of oxycodone. Currently oxycodone 10 mg b.i.d. and reducing his monthly pills by a reduction of 2 tablets per month. (2) Opiate dependence: Code(s): F11.20 - Opioid dependence, uncomplicated Category: Medical Qualifiers: Substance use status: uncomplicated Qualified Code(s): F11.20 - Opioid dependence, uncomplicated Plan: As above patient has dependency to opiates. Will continue to slowly wean his dose.. Urine drug screens have been appropriate. There has been no misuse or abuse signs. (3) Asthma: Code(s): J45.909 - Unspecified asthma, uncomplicated Category: Medical Qualifiers: Asthma complication type: uncomplicated Asthma persistence: intermittent Asthma severity: mild Qualified Code(s): J45.20 - Mild intermittent asthma, uncomplicated Plan: Patient is a former smoker, has not picked up smoking again. He continues with p.r.n. use of his albuterol inhaler. He does report the change in seasons does decompensate his asthma. (4) Polyarthralgia: Code(s): M25.50 - Pain in unspecified joint Category: Medical Plan: As per HPI patient has been having increased joint pains to which he attributes to change in weather. He is not able to take anti-inflammatories due to GI side effects. Does have access to acetaminophen nephritis and does use his narcotic pain medication. Of note does have a history of a positive WILL (5) Abrasion of left cornea: Code(s): S05.02XA - Injury of conjunctiva and corneal abrasion without foreign body, left eye, initial encounter Category: Medical Qualifiers: Encounter type: initial encounter Qualified Code(s): S05.02XA - Injury of conjunctiva and corneal abrasion without foreign body, left eye, initial encounter Plan: He does have difficulty with his vision since having a corneal abrasion. He has interested in seeing Ophthalmology further evaluation of his eyes. Orders: Orders Cyclic Citrullinated Peptide Today M25.50 - Pain in unspecified joint Rheumatoid Factor Today M25.50 - Pain in unspecified joint WILL Reflex Titer and Pattern Today M25.50 - Pain in unspecified joint Comprehensive [place]. Panel Fast Today Z13.1 - Encounter for screening for diabetes mellitus Drug Screen Urine Today F11.20 - Opioid dependence, uncomplicated Complete Blood Count no Diff Today Z13.1 - Encounter for screening for diabetes mellitus Referrals Ophthalmology Referral S05.02XA - Injury of conjunctiva and corneal abrasion without foreign body, left eye, initial encounter
== END 2025-08-21 10:18 | disposition home or self-care (01) ==
LOC: HO.HMCH 09:31
PROVIDERS: PCP Physician Assistant; Visit Provider Physician Assistant
DX: M96.1 Postlaminectomy syndrome, not elsewhere classified (principal); F11.20 Opioid dependence, uncomplicated; J45.20 Mild intermittent asthma, uncomplicated; M25.50 Pain in unspecified joint; S05.02XA Injury of conjunctiva and corneal abrasion without foreign body, left eye, initial encounter

== ENCOUNTER → 2025-08-21 09:30 | Outpatient (BNVA) | payer MEDICARE, SELFPAY | PROVIDERS: PCP Physician Assistant; Visit Provider Physician Assistant | DX: M96.1 Postlaminectomy syndrome, not elsewhere classified (principal); F11.20 Opioid dependence, uncomplicated; J45.20 Mild intermittent asthma, uncomplicated; M25.50 Pain in unspecified joint; S05.02XD Injury of conjunctiva and corneal abrasion without foreign body, left eye, subsequent encounter | CPT/HCPCS: 99212 ==